=== PATIENT | female | born 1935 | race Caucasian/White ===

== ENCOUNTER → 2016-12-23 | Outpatient (CLI) | payer BC ==
[2016-12-23 09:12] LABS: ALANINE AMINOTRANSFERASE 18 U/L (9-52); ALBUMIN 4.1 g/dL (3.5-5.0); ALKALINE PHOSPHATASE 36 U/L (38-126); ANION GAP 12 (5-19); ASPARTATE AMINO TRANSFERASE 21 U/L (14-36); BILIRUBIN,DIRECT 0.2 mg/dL (0.0-0.4); BILIRUBIN,TOTAL 0.4 mg/dL (0.2-1.3); BLOOD UREA NITROGEN 38 mg/dL (7-20); CALCIUM 9.3 mg/dL (8.4-10.2); CARBON DIOXIDE 22 mmol/L (22-30); CHLORIDE 102 mmol/L (98-107); CHOLESTEROL 165.98 mg/dL (0-200); CREATININE RESULT 1.52 mg/dL (0.52-1.25); Direct HDL 54 mg/dL (>40); GLUCOSE 126 mg/dL (75-110); POTASSIUM 5.6 mmol/L (3.6-5.0); SODIUM 136.4 mmol/L (137-145); TOTAL PROTEIN 7.6 g/dL (6.3-8.2); TRIGLYCERIDES 116 mg/dL (<150)
[2016-12-23 09:23] LABS: DIRECT LDL 76 mg/dL (<100)
[2016-12-23 09:27] LABS: HEMATOCRIT 25.1 % (36.0-47.0); HEMOGLOBIN 8.6 g/dL (12.0-15.5); HGB HCT DIFFERENCE 0.7; WHITE BLOOD COUNT 6.8 10^3/uL (4.0-10.5)
[2016-12-23 09:28] LABS: RED BLOOD COUNT 2.31 10^6/uL (3.72-5.28)
[2016-12-23 09:29] LABS: MEAN CORPUSCULAR VOLUME 109 fl (80-97); RED CELL DISTRIBUTION WIDTH 16.3 % (11.5-14.0)
[2016-12-23 09:42] LABS: BASOPHILS % (MANUAL) 2 % (0-2); EOSINOPHILS % (MANUAL) 13 % (0-6); LYMPHOCYTES % (MANUAL) 33 % (13-45); TOTAL CELLS COUNTED 100; TOXIC GRANULATION SLIGHT
[2016-12-23 09:43] LABS: OVALOCYTES 2+; POIKILOCYTOSIS 2+; ROULEAUX SLIGHT; SCHISTOCYTES SLIGHT
[2016-12-23 09:44] LABS: ANISOCYTOSIS 1+
== END ==
LOC: OD 08:10
PROVIDERS: ATTEND Internal Medicine Geriatric Medicine
DX: E11.39 Type 2 diabetes mellitus with other diabetic ophthalmic complication (principal); I10 Essential (primary) hypertension
CPT/HCPCS: 36415; 80053; 80061; 85025

== ENCOUNTER 2017-07-08 15:04 | Observation (INO) | payer BC ==
[2017-07-08 17:09] LABS: ALANINE AMINOTRANSFERASE 21 U/L (9-52); ALBUMIN 4.5 g/dL (3.5-5.0); ALKALINE PHOSPHATASE 45 U/L (38-126); ANION GAP 9 (5-19); ASPARTATE AMINO TRANSFERASE 19 U/L (14-36); BILIRUBIN,DIRECT 0.2 mg/dL (0.0-0.4); BILIRUBIN,TOTAL 0.5 mg/dL (0.2-1.3); BLOOD UREA NITROGEN 34 mg/dL (7-20); CALCIUM 9.8 mg/dL (8.4-10.2); CARBON DIOXIDE 24 mmol/L (22-30); CHLORIDE 105 mmol/L (98-107); GLUCOSE 134 mg/dL (75-110); IRON(TIBC) 88.2 ug/dL (37-170); SODIUM 137.8 mmol/L (137-145); TOTAL PROTEIN 7.8 g/dL (6.3-8.2)
[2017-07-08 17:23] LABS: AMORPHOUS SEDIMENT,URINE TRACE /HPF; APPEARANCE,URINE CLOUDY; BILIRUBIN,URINE NEGATIVE (NEGATIVE); COLOR,URINE YELLOW; GLUCOSE, URINE NEGATIVE (NEGATIVE); KETONES,URINE NEGATIVE (NEGATIVE); LEUKOCYTE ESTERASE,URINE LARGE (NEGATIVE); NITRITE,URINE POSITIVE (NEGATIVE); PROTEIN,URINE 30 mg/dL (NEGATIVE); URINE SPECIFIC GRAVITY 1.005; UROBILINOGEN,URINE NEGATIVE mg/dL (<2.0)
[2017-07-08 18:15] LABS: FOLATE > 20.00 ng/mL (>2.76)
[2017-07-08] MEDS ORDERED: CEFTRIAXONE 1 GM/D5W RTU 1 GM/50 ML RTUPB IV SCH (19:00)
[2017-07-08 19:42] LABS: HEMATOCRIT 21.7 % (36.0-47.0); PLATELET COUNT 118 10^3/uL (150-450); RED CELL DISTRIBUTION WIDTH 18.3 % (11.5-14.0); WHITE BLOOD COUNT 5.7 10^3/uL (4.0-10.5)
[2017-07-08 20:00] LABS: ABSOLUTE LYMPHOCYTES# (MANUAL) 1.5 10^3/uL (0.5-4.7); ABSOLUTE MONOCYTES # (MANUAL) 0.6 10^3/uL (0.1-1.4); ABSOLUTE NEUTROPHILS# (MANUAL) 3.5 10^3/uL (1.7-8.2); BASOPHILS % (MANUAL) 0 % (0-2); EOSINOPHILS % (MANUAL) 3 % (0-6); LYMPHOCYTES % (MANUAL) 26 % (13-45); MONOCYTES % (MANUAL) 10 % (3-13); SEGMENTED NEUTROPHILS % (MAN) 61 % (42-78); TOTAL CELLS COUNTED 100
[2017-07-08 20:04] LABS: ANISOCYTOSIS 1+; OVALOCYTES SLIGHT; PLATELET COMMENT DECREASED; POIKILOCYTOSIS SLIGHT
[2017-07-08 20:05] LABS: PLATELET LARGE PRESENT
[2017-07-08 20:06] LABS: MEAN CORPUSCULAR HEMOGLOBIN 39.9 pg (27.0-33.4); MEAN CORPUSCULAR HGB CONC 35.8 g/dL (32.0-36.0); RED BLOOD COUNT 1.95 10^6/uL (3.72-5.28)
[2017-07-08 20:08] LABS: MEAN CORPUSCULAR VOLUME 111 fl (80-97)
[2017-07-08 20:09] LABS: HEMOGLOBIN 7.8 g/dL (12.0-15.5)
[2017-07-08] MEDS: CEFTRIAXONE SODIUM 1,000 MG in NORMAL SALINE 50 ML IV SCH (20:24)
[2017-07-08] MEDS ORDERED: ACETAMINOPHEN 325 MG TABLET PO PRN (21:04)
[2017-07-08] MEDS ORDERED: LISINOPRIL 10 MG TABLET PO ONE (22:15)
[2017-07-09 05:27] LABS: ANION GAP 11 (5-19); BLOOD UREA NITROGEN 39 mg/dL (7-20); CALCIUM 9.6 mg/dL (8.4-10.2); CARBON DIOXIDE 24 mmol/L (22-30); CHLORIDE 106 mmol/L (98-107); GLUCOSE 103 mg/dL (75-110); POTASSIUM 4.9 mmol/L (3.6-5.0); SODIUM 140.7 mmol/L (137-145)
[2017-07-09] MEDS: LANSOPRAZOLE 30 MG TAB.RAP.DR PO SCH (07:08)
--- NOTE | 2017-07-09 08:28 | PDOC H&P ---
History of Present Illness Admission Date/PCP: 07/08/17 15:34 Patient complains of: Frequent falls, Severe Anemia History of Present Illness: VIJI VARGAS is a 82 year old female known to my practice who presented for her annual wellness evaluation and reported recurrent episodes of fall at home. Patient reported preceding episodes of unsteady gait. No loss of consciousness. She denied any related injury. No associated chest pain, shortness of breath, palpitation or irregular heart beats. No nausea, vomiting, or abdominal pain. Patient reported tarry stool couple of times. There is associated change in urine color but no flank pain, hematuria, or dysuria. Her initial evaluation in the office revealed significant anemia with hemoglobin at 7.5gm/dL. She was subsequently sent to the ED with consideration for blood transfusion and further evaluation. 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, diet controlled diabetes mellitus type 2, osteoporosis, Macula degeneration Past Medical History Cardiac Medical History: Reports: Hypertension - LISINOPRIL, AMLODIPINE Denies: Myocardial Infarction Pulmonary Medical History: Denies: Asthma Neurological Medical History: Denies: Seizures GI Medical History: Denies: Hepatitis, Hiatal Hernia Hematology: Denies: Anemia, Sickle Cell Disease Past Surgical History Past Surgical History: Denies: Amputation, Hysterectomy, Mastectomy, Pacemaker Social History Smoking Status: Former Smoker Cigarettes Packs Per Day: 1 Number of Years Smokin Last Time Smoked: 06/09/1989 Frequency of Alcohol Use: Occasional Hx Recreational Drug Use: No Drugs: None Hx Prescription Drug Abuse: No Family History Family History: None Parental Family History Reviewed: Yes Children Family History Reviewed: Yes Sibling(s) Family History Reviewed.: Yes Medication/Allergy Home Medications: Fosinopril Sodium [Monopril] 20 mg PO DAILY 07/08/17 Metformin HCl [Metformin HCl ER] 500 mg PO Q12 07/08/17 Metoprolol Succinate [Toprol Xl 25 mg Tab.sr] 25 mg PO DAILY 07/08/17 Mirtazapine [Remeron] 30 mg PO QHS 07/08/17 Allergies/Adverse Reactions: codeine [Codeine] Adverse Reaction (Verified 07/08/17 15:08) Nausea Review of Systems All systems: reviewed and no additional remarkable complaints except as stated Physical Exam Vital Signs: Temp Pulse Resp BP Pulse Ox 98.6 F 69 18 120/60 100 07/09/17 06:30 07/09/17 07:00 07/09/17 06:30 07/09/17 06:30 07/09/17 06:30 Intake & Output 07/08/17 07/09/17 07/10/17 06:59 06:59 06:59 Intake Total 350 Balance 350 Weight 39.7 kg General appearance: PRESENT: thin Head exam: PRESENT: atraumatic, normocephalic Eye exam: PRESENT: conjunctiva pale, EOMI, PERRLA. ABSENT: scleral icterus Mouth exam: PRESENT: moist Neck exam: PRESENT: full ROM. ABSENT: carotid bruit, JVD, lymphadenopathy, thyromegaly Respiratory exam: PRESENT: clear to auscultation laura Cardiovascular exam: PRESENT: RRR. ABSENT: diastolic murmur, rubs, systolic murmur Pulses: PRESENT: normal dorsalis pedis pul, +2 pedal pulses bilateral Vascular exam: PRESENT: normal capillary refill, pallor GI/Abdominal exam: PRESENT: normal bowel sounds, soft. ABSENT: distended, guarding, mass, organolmegaly, rebound, tenderness Rectal exam: PRESENT: deferred Extremities exam: ABSENT: pedal edema Musculoskeletal exam: PRESENT: normal inspection Neurological exam: PRESENT: alert, awake, oriented to person, oriented to place , oriented to time, oriented to situation, CN II-XII grossly intact. ABSENT: motor sensory deficit Psychiatric exam: PRESENT: appropriate affect, normal mood. ABSENT: homicidal ideation, suicidal ideation Skin exam: PRESENT: dry, intact, warm. ABSENT: cyanosis, rash Results Laboratory Results: 07/08/17 18:30 07/09/17 04:18 07/08/17 07/08/17 07/08/17 16:34 16:34 16:34 WBC Cancelled RBC Cancelled Hgb Cancelled Hct Cancelled MCV Cancelled MCH Cancelled MCHC Cancelled RDW Cancelled Plt Count Cancelled Seg Neutrophils % Cancelled Lymphocytes % Cancelled Monocytes % Cancelled Eosinophils % Cancelled Basophils % Cancelled Absolute Neutrophils Cancelled Absolute Lymphocytes Cancelled Absolute Monocytes Cancelled Absolute Eosinophils Cancelled Absolute Basophils Cancelled Sodium 137.8 Potassium 5.0 Chloride 105 Carbon Dioxide 24 Anion Gap 9 BUN 34 H Creatinine 1.53 H Est GFR ( Amer) 39 L Est GFR (Non-Af Amer) 32 L Glucose 134 H Calcium 9.8 Iron 88.2 TIBC 297 % Saturation 30 Ferritin 73.10 Total Bilirubin 0.5 AST 19 ALT 21 Alkaline Phosphatase 45 Total Protein 7.8 Albumin 4.5 Vitamin B12 636.0 Folate > 20.00 Urine Color Urine Appearance Urine pH Ur Specific [place] Urine Protein Urine Glucose (UA) Urine Ketones Urine Blood Urine Nitrite Ur Leukocyte Esterase Urine WBC (Auto) Urine RBC (Auto) Blood Type A NEGATIVE Antibody Screen NEGATIVE 07/08/17 07/08/17 07/09/17 17:04 18:30 04:18 WBC 5.7 RBC 1.95 L Hgb 7.8 L Hct 21.7 L MCV 111 H MCH 39.9 H MCHC 35.8 RDW 18.3 H Plt Count 118 L Seg Neutrophils % Not Reportable Lymphocytes % Not Reportable Monocytes % Not Reportable Eosinophils % Not Reportable Basophils % Not Reportable Absolute Neutrophils Not Reportable Absolute Lymphocytes Not Reportable Absolute Monocytes Not Reportable Absolute Eosinophils Not Reportable Absolute Basophils Not Reportable Sodium 140.7 Potassium 4.9 Chloride 106 Carbon Dioxide 24 Anion Gap 11 BUN 39 H Creatinine 1.44 H Est GFR ( Amer) 42 L Est GFR (Non-Af Amer) 35 L Glucose 103 Calcium 9.6 Iron TIBC % Saturation Ferritin Total Bilirubin AST ALT Alkaline Phosphatase Total Protein Albumin Vitamin B12 Folate Urine Color YELLOW Urine Appearance CLOUDY Urine pH 6.0 Ur Specific [place] 1.005 Urine Protein 30 H Urine Glucose (UA) NEGATIVE Urine Ketones NEGATIVE Urine Blood SMALL H Urine Nitrite POSITIVE H Ur Leukocyte Esterase LARGE H Urine WBC (Auto) 66 Urine RBC (Auto) 9 Blood Type Antibody Screen Assessment & Plan - Diagnosis (1) Symptomatic anemia Is this a current diagnosis for this admission?: Yes Plan: See admitting physician orders (2) Frequent falls Is this a current diagnosis for this admission?: Yes Plan: See admitting physician orders (3) HTN (hypertension) Qualifiers: Hypertension type: essential hypertension Qualified Code(s): I10 - Essential (primary) hypertension Is this a current diagnosis for this admission?: Yes Plan: See admitting physician orders (4) Failure to thrive syndrome, adult Is this a current diagnosis for this admission?: Yes Plan: See admitting physician orders (5) HLD (hyperlipidemia) Qualifiers: Hyperlipidemia type: unspecified Qualified Code(s): E78.5 - Hyperlipidemia , unspecified Is this a current diagnosis for this admission?: Yes Plan: See admitting physician orders (6) Diabetes mellitus type 2 in nonobese Is this a current diagnosis for this admission?: Yes Plan: See admitting physician orders (7) Osteoarthritis involving multiple joints on both sides of body Is this a current diagnosis for this admission?: Yes Plan: See admitting physician orders - Time Time Spent: 50 to 70 Minutes Medications reviewed and adjusted accordingly: Yes Anticipated discharge: Home with Homehealth Within: within 48 hours - Inpatient Certification Post Hospital Care: D/C Master Fisher Documentation - Plan Summary Plan Summary: See admitting physician orders
[2017-07-09] MEDS: LISINOPRIL 10 MG TABLET PO SCH (09:31)
[2017-07-09 13:48] LABS: ABSOLUTE EOSINOPHILS # (AUTO) 0.3 10^3/uL (0.0-0.6); ABSOLUTE LYMPHOCYTES (AUTO) 1.6 10^3/uL (0.5-4.7); ABSOLUTE MONOCYTES (AUTO) 0.4 10^3/uL (0.1-1.4); ABSOLUTE NEUT (AUTO) 3.7 10^3/uL (1.7-8.2); BASOPHILS % (AUTO) 0.7 % (0-2); EOSINOPHILS % (AUTO) 4.5 % (0-6); HEMATOCRIT 34.3 % (36.0-47.0); LYMPHOCYTES % (AUTO) 26.1 % (13-45); MEAN CORPUSCULAR HEMOGLOBIN 36.7 pg (27.0-33.4); MONOCYTES % (AUTO) 7.3 % (3-13); PLATELET COUNT 103 10^3/uL (150-450); RED CELL DISTRIBUTION WIDTH 19.6 % (11.5-14.0); SEGMENTED NEUTROPHILS % (AUTO) 61.4 % (42-78); TOTAL CELLS COUNTED % (AUTO) 100 %
[2017-07-09 13:50] LABS: HEMOGLOBIN 12.5 g/dL (12.0-15.5)
[2017-07-09 13:54] LABS: MEAN CORPUSCULAR HGB CONC 36.3 g/dL (32.0-36.0); MEAN CORPUSCULAR VOLUME 101 fl (80-97)
[2017-07-09 14:40] LABS: PATH REVIEW PATHOLOGIST REVIEWED
[2017-07-09] MEDS: CEFTRIAXONE SODIUM 1,000 MG in NORMAL SALINE 50 ML IV SCH (22:07)
[2017-07-10] MEDS: LANSOPRAZOLE 30 MG TAB.RAP.DR PO SCH (06:00)
[2017-07-10] MEDS: LISINOPRIL 10 MG TABLET PO SCH (09:40)
[2017-07-10 15:30] LABS: APPEARANCE,URINE SLIGHTLY-CLOUDY; BILIRUBIN,URINE NEGATIVE (NEGATIVE); COLOR,URINE YELLOW; GLUCOSE, URINE NEGATIVE (NEGATIVE); KETONES,URINE NEGATIVE (NEGATIVE); LEUKOCYTE ESTERASE,URINE LARGE (NEGATIVE); NITRITE,URINE NEGATIVE (NEGATIVE); PROTEIN,URINE NEGATIVE (NEGATIVE); UROBILINOGEN,URINE NEGATIVE mg/dL (<2.0)
--- NOTE | 2017-07-10 15:41 | Physician Advisory Note ---
Physician Advisor ProgressNote .: [facility] have reviewed [facility] medical record for this patient. Physician Advisor Statement: Please consider documenting, if you agree: 1. "Anemia, suspect due to " ("chronic blood loss due to occult GI bleeding ..."?, or "nutritional ____ deficiency anemia"? or ...) 2. "falls, possibly due to " Thanks! CK
--- NOTE | 2017-07-10 18:29 | PDOC DISCHARGE SUMMARY ---
General - Admit/Disc Date/PCP Admission Date/Primary Care Provider: 07/08/17 15:34 Discharge Date: 07/10/17 - Discharge Diagnosis (1) Symptomatic anemia Is this a current diagnosis for this admission?: Yes (2) Anemia associated with diabetes mellitus Is this a current diagnosis for this admission?: Yes (3) Diabetes mellitus type 2 in nonobese Is this a current diagnosis for this admission?: Yes (5) Frequent falls Is this a current diagnosis for this admission?: Yes (6) HTN (hypertension) Is this a current diagnosis for this admission?: Yes (7) Failure to thrive syndrome, adult Is this a current diagnosis for this admission?: Yes (8) HLD (hyperlipidemia) Is this a current diagnosis for this admission?: Yes (9) Osteoarthritis involving multiple joints on both sides of body Is this a current diagnosis for this admission?: Yes - Additional Information Discharge Diet: Cardiac, Diabetic Discharge Activity: Activity As Tolerated Prescriptions: Cephalexin Monohydrate [Keflex 500 mg Capsule] 500 mg PO BID #10 capsule Home Medications: Fosinopril Sodium [Monopril] 20 mg PO DAILY 07/08/17 Metformin HCl [Metformin HCl ER] 500 mg PO Q12 07/08/17 Metoprolol Succinate [Toprol Xl 25 mg Tab.sr] 25 mg PO DAILY 07/08/17 Mirtazapine [Remeron] 30 mg PO QHS 07/08/17 Cephalexin Monohydrate [Keflex 500 mg Capsule] 500 mg PO BID #10 capsule History of Present Illness History of Present Illness: VIJI VARGAS is a 82 year old female known to my practice who presented for her annual wellness evaluation and reported recurrent episodes of fall at home. Patient reported preceding episodes of unsteady gait. No loss of consciousness. She denied any related injury. No associated chest pain, shortness of breath, palpitation or irregular heart beats. No nausea, vomiting, or abdominal pain. Patient reported tarry stool couple of times. There is associated change in urine color but no flank pain, hematuria, or dysuria. Her initial evaluation in the office revealed significant anemia with hemoglobin at 7.5gm/dL. She was subsequently sent to the ED with consideration for blood transfusion and further evaluation. 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 Her anemia workup so far has been negative for chronic blood loss or nutritional source. Her anemia may be due to suppressed marrow function related to diabetes mellitus type 2 management. She was managed for probable bacteria UTI. She will be discharged home on Keflex 500mg po bid x 5 days. She will follow up in the office as instructed upon discharge. she will need outpatient further work up for anemia Physical Exam Vital Signs: Temp Pulse Resp BP Pulse Ox 98.8 F 96 20 116/49 L 97 07/10/17 13:14 07/10/17 14:00 07/10/17 13:14 07/10/17 13:14 07/10/17 13:14 Intake & Output 07/09/17 07/10/17 07/11/17 06:59 06:59 06:59 Intake Total 1050 1492 Balance 1050 1492 Weight 39.7 kg 45.5 kg General appearance: PRESENT: no acute distress, thin Head exam: PRESENT: atraumatic, normocephalic Eye exam: PRESENT: conjunctiva pink, EOMI, PERRLA. ABSENT: scleral icterus Mouth exam: PRESENT: moist Respiratory exam: PRESENT: clear to auscultation laura Cardiovascular exam: PRESENT: RRR. ABSENT: diastolic murmur, rubs, systolic murmur Vascular exam: PRESENT: normal capillary refill. ABSENT: pallor GI/Abdominal exam: PRESENT: normal bowel sounds, soft. ABSENT: distended, guarding, mass, organolmegaly, rebound, tenderness Extremities exam: ABSENT: pedal edema Musculoskeletal exam: PRESENT: deformity - due to arthritis, normal inspection Neurological exam: PRESENT: alert, awake, oriented to person, oriented to place , oriented to time, oriented to situation, CN II-XII grossly intact. ABSENT: motor sensory deficit Psychiatric exam: PRESENT: appropriate affect, normal mood. ABSENT: homicidal ideation, suicidal ideation Skin exam: PRESENT: dry, intact, warm. ABSENT: cyanosis, rash Results Laboratory Results: 07/09/17 13:31 07/09/17 04:18 07/10/17 15:15 Urine Color YELLOW Urine Appearance SLIGHTLY-CLOUDY Urine pH 6.0 Ur Specific [place] 1.010 Urine Protein NEGATIVE Urine Glucose (UA) NEGATIVE Urine Ketones NEGATIVE Urine Blood NEGATIVE Urine Nitrite NEGATIVE Ur Leukocyte Esterase LARGE H Urine WBC (Auto) 87 Urine RBC (Auto) 1 07/08/17 17:04 Clean Catch Midstream Urine Culture - Final 2,000 col/ml Qualifiers PATEINT BEING DISCHARGED WITH ANY OF THE FOLLOWING DIAGNOSIS?: No Plan Discharge Plan: Discharge home today. Follow up in the office as instructed upon discharge.
[2017-07-10 18:38] VITALS: BP 120/60
== END 2017-07-10 19:09 | disposition home or self-care (01) ==
LOC: ER 15:04 → EH 15:34 → 4N 21:49
PROVIDERS: ADMIT Internal Medicine Geriatric Medicine; ATTEND Internal Medicine Geriatric Medicine
PROC: 30233N1 Transfusion of Nonautologous Red Blood Cells into Peripheral Vein, Percutaneous Approach (ICD-10-PCS; principal; 2017-07-09)
DX: E11.69 Type 2 diabetes mellitus with other specified complication (principal); D63.8 Anemia in other chronic diseases classified elsewhere; R29.6 Repeated falls; I10 Essential (primary) hypertension; R62.7 Adult failure to thrive; E78.5 Hyperlipidemia, unspecified; M15.9 Polyosteoarthritis, unspecified; R26.81 Unsteadiness on feet; R19.5 Other fecal abnormalities; M81.0 Age-related osteoporosis without current pathological fracture; H35.30 Unspecified macular degeneration; Z79.899 Other long term (current) drug therapy; Z87.891 Personal history of nicotine dependence
CPT/HCPCS: 86900; 86901; 36415 ×2; 87086; 36430; 86850; 82607; 82728; 82746; 83540; 83550; 85025 ×2; 80048; 80053; 81001 ×2; 86920; 86902; G0378 ×4; P9016; J0696 ×2; J3490 ×2; G0379

== ENCOUNTER → 2017-07-23 | Outpatient (CLI) | payer BC ==
[2017-07-24 07:25] LABS: ERYTHROPOIETIN (EPO) 26.6 mIU/mL (2.6-18.5)
[2017-07-25 16:39] LABS: A/G RATIO 1.2 (0.7-1.7); ALBUMIN 2 4.2 g/dL (2.9-4.4); ALPHA-2-GLOBULIN 2 0.7 g/dL (0.4-1.0); BETA GLOBULINS 1.1 g/dL (0.7-1.3); GAMMA GLOBULIN 1.6 g/dL (0.4-1.8); GLOBULIN TOTAL 3.5 g/dL (2.2-3.9); MONOCLONAL SPIKE Not Observed g/dL (Not Observed); PROTEIN TOTAL SERUM 7.7 g/dL (6.0-8.5)
[2017-07-28 13:38] LABS: IMMUNOGLOBULIN A 428 mg/dL (64-422); IMMUNOGLOBULIN G 1396 mg/dL (700-1600)
[2017-07-28 13:57] LABS: IMMUNOGLOBULIN M 73 mg/dL (26-217)
[2017-07-28 15:38] LABS: ALBUMIN UR 24.2 % (.); ALPHA-1-GLOBULIN URINE 3.6 % (.); ALPHA-2-GLOBULIN URINE 17.8 % (.); GAMMA GLOBULIN URINE 29.4 % (.); M-SPIKE % UR Not Observed % (Not Observed); PROTEIN TOTAL URINE 15.8 mg/dL (Not Estab.)
== END ==
LOC: OD 11:54
PROVIDERS: ATTEND Internal Medicine Geriatric Medicine
DX: D64.9 Anemia, unspecified (principal)
CPT/HCPCS: 36415; 82668; 82784; 84165; 84166

== ENCOUNTER → 2017-09-10 | Outpatient (CLI) | payer BC ==
--- NOTE | 2017-09-10 16:31 | RADIOLOGY REPORT (SQ) ---
EXAM DESCRIPTION: BONE SURVEY COMPLETE COMPLETED DATE/TIME: 09/10/2017 3:20 pm REASON FOR STUDY: OTHER DISORDERS OF PLASMA PROTEIN METABOLISM/ANEMIA/THROMBOCYTOPENIA E88.09 OTH D ISORDERS OF PLASMA-PROTEIN METABOLISM, NEC COMPARISON: None. TECHNIQUE: Images of the axial and proximal appendicular skeleton are obtained, along with lateral s kull and frontal chest films. LIMITATIONS: None. FINDINGS: AP CHEST: No bony findings. Lungs are clear, hyperlucent from obstructive disease. Calci fied granulomas both lung bases and spleen. No cardiomegaly. Old healed left lateral 5th and 6th ri b fractures. LATERAL SKULL: No worrisome bone lesions. AP BOTH HUMERI: No worrisome bone lesions. TWO-VIEW LUMBAR SPINE: No worrisome bone lesions. Minimal upper endplate T9 compression deformity TWO-VIEW THORACIC SPINE: No worrisome bone lesions. AP PELVIS: No worrisome bone lesions. AP BOTH FEMURS: No worrisome bone lesions. OTHER: Incidental finding of calcified gallstones. IMPRESSION: NO WORRISOME BONE LESIONS. TECHNICAL DOCUMENTATION: JOB ID: [id number] [employer]- All Rights Reserved Reading location - IP/workstation name: [email or web address]
== END ==
LOC: RAD 14:28
PROVIDERS: ATTEND Internal Medicine Medical Oncology
DX: D64.9 Anemia, unspecified (principal); E88.09 Other disorders of plasma-protein metabolism, not elsewhere classified; D69.6 Thrombocytopenia, unspecified
CPT/HCPCS: 77075

== ENCOUNTER 2017-10-03 07:49 | Outpatient (CLI) | payer BC ==
[~2017-10-03 07:49] MED LIST: ACETAMINOPHEN 325 MG TABLET PO PRN; DIPHENHYDRAMINE HCL 25 MG CAPSULE PO PRN; FUROSEMIDE INJ/PF 20 MG/2 ML SDV IV PRN
[2017-10-03] MEDS ORDERED: NORMAL SALINE 250 ML IV PRN (08:57)
[2017-10-03 12:50] VITALS: BP 161/73
[2017-10-03 14:43] LABS: HEMOGLOBIN 10.6 g/dL (12.0-15.5); RED CELL DISTRIBUTION WIDTH 15.4 % (11.5-14.0); WHITE BLOOD COUNT 4.8 10^3/uL (4.0-10.5)
[2017-10-03 14:55] LABS: HEMATOCRIT 30.3 % (36.0-47.0); MEAN CORPUSCULAR HEMOGLOBIN 32.9 pg (27.0-33.4); MEAN CORPUSCULAR HGB CONC 35.2 g/dL (32.0-36.0); MEAN CORPUSCULAR VOLUME 93 fl (80-97); PLATELET COUNT 59 10^3/uL (150-450); RED BLOOD COUNT 3.24 10^6/uL (3.72-5.28)
== END 2017-10-03 15:00 | disposition home or self-care (01) ==
LOC: II 07:49 → 5TH 08:01 → II 15:00
PROVIDERS: ATTEND Internal Medicine Medical Oncology
PROC: 30233R1 Transfusion of Nonautologous Platelets into Peripheral Vein, Percutaneous Approach (ICD-10-PCS; principal; 2017-10-03)
DX: D64.9 Anemia, unspecified (principal)
CPT/HCPCS: 86900; 86901; 36415; 36430; 85027; P9035

== ENCOUNTER 2017-10-18 10:18 | Inpatient (IN) | payer MEDICARE, BC ==
--- NOTE | 2017-10-18 10:35 | ER Document Report ---
ED Medical Screen (RME) - General Chief Complaint: General Weakness Stated Complaint: WEAKNESS Time Seen by Provider: 10/18/17 10:28 Notes: RAPID MEDICAL EVALUATION DISCLOSURE I have seen this patient as part of a Rapid Medical Evaluation and, if applicable, placed any initially appropriate orders. The patient will be seen and fully evaluated, including a full history and physical exam, by a provider ( in Main ED or Fast Track) when a room becomes available. 82F here w family who states she's been weak and lightheaded all over for the past 3 days. The lightheadedness is worse with standing up. She does not have any pain anywhere. She denies cough congestion runny nose sore throat vomiting abdominal pain dysuria frequency. She did have diarrhea earlier in the week for which she took Imodium and this has resolved. EXAM Minimally tachycardic low 100s Regular rhythm Clear to auscultation bilaterally TRAVEL OUTSIDE OF THE [place] IN LAST 30 DAYS: No - Related Data Allergies/Adverse Reactions: codeine [Codeine] Adverse Reaction (Verified 10/18/17 10:33) Nausea Past Medical History - Social History Chew tobacco use (# tins/day): No Frequency of alcohol use: Rare Drug Abuse: None - Past Medical History Cardiac Medical History: Reports: Hx Hypertension - LISINOPRIL, AMLODIPINE Denies: Hx Heart Attack Pulmonary Medical History: Denies: Hx Asthma Neurological Medical History: Denies: Hx Cerebrovascular Accident, Hx Seizures Renal/ Medical History: Denies: Hx Peritoneal Dialysis GI Medical History: Denies: Hx Hepatitis, Hx Hiatal Hernia, Hx Ulcer Infectious Medical History: Denies: Hx Hepatitis Past Surgical History: Denies: Hx Hysterectomy, Hx Mastectomy, Hx Open Heart Surgery, Hx Pacemaker - Immunizations Hx Diphtheria, Pertussis, Tetanus Vaccination: Yes History of Influenza Vaccine for 03/2017 - 08/2017 Season: Refused Physical Exam - Vital signs Vitals: Temp Pulse Resp BP Pulse Ox 98.2 F 103 H 22 H 103/55 L 99 10/18/17 10:26 10/18/17 10:10/18/17 10:10/18/17 10:10/18/17 10:26 Course - Vital Signs Vital signs: Temp Pulse Resp BP Pulse Ox 98.2 F 103 H 22 H 103/55 L 99 10/18/17 10:10/18/17 10:10/18/17 10:10/18/17 10:10/18/17 10:26
--- NOTE | 2017-10-18 11:33 | ER Document Report ---
ED General - General Chief Complaint: General Weakness Stated Complaint: WEAKNESS Time Seen by Provider: 10/18/17 10:28 Mode of Arrival: Ambulatory Information source: Patient, [facility] Records Notes: 82-year-old female history of anemia requiring multiple transfusions presents with complaints of generalized weakness. Patient is noted to have had few episodes of diarrhea recently has not been eating or drinking well guarding notes the patient herself denies any complaints but stated that she was locking up today while on the toilet but that symptoms have improved since then TRAVEL OUTSIDE OF THE [place] IN LAST 30 DAYS: No - HPI Onset: Last week Onset/Duration: Persistent Quality of pain: No pain Severity: Mild Pain Level: Denies Associated symptoms: Weakness Exacerbated by: Denies Relieved by: Denies Similar symptoms previously: Yes Recently seen / treated by doctor: Yes - Related Data Allergies/Adverse Reactions: codeine [Codeine] Adverse Reaction (Verified 10/18/17 10:33) Nausea Past Medical History - Social History Smoking Status: Never Smoker Cigarette use (# per day): No Chew tobacco use (# tins/day): No Smoking Education Provided: No Frequency of alcohol use: Rare Drug Abuse: None Family History: None Patient has suicidal ideation: No Patient has homicidal ideation: No - Past Medical History Cardiac Medical History: Reports: Hx Hypertension - LISINOPRIL, AMLODIPINE Denies: Hx Heart Attack Pulmonary Medical History: Denies: Hx Asthma Neurological Medical History: Denies: Hx Cerebrovascular Accident, Hx Seizures Renal/ Medical History: Denies: Hx Peritoneal Dialysis GI Medical History: Denies: Hx Hepatitis, Hx Hiatal Hernia, Hx Ulcer Infectious Medical History: Denies: Hx Hepatitis Past Surgical History: Denies: Hx Hysterectomy, Hx Mastectomy, Hx Open Heart Surgery, Hx Pacemaker - Immunizations Hx Diphtheria, Pertussis, Tetanus Vaccination: Yes Review of Systems - Review of Systems Notes: REVIEW OF SYSTEMS: CONSTITUTIONAL : Denies fever, chills, or sweats. Denies recent illness. EENT: Denies eye, ear, throat, or mouth pain or symptoms. Denies nasal or sinus congestion or discharge. Denies throat, tongue, or mouth swelling or difficulty swallowing. CARDIOVASCULAR: Denies chest pain. Denies palpitations or racing or irregular heart beat. Denies ankle edema. RESPIRATORY: Denies cough, cold, or chest congestion. Denies shortness of breath, difficulty breathing, or wheezing. GASTROINTESTINAL: Admits nausea diarrhea GENITOURINARY: Denies difficulty urinating, painful urination, burning, frequency, blood in urine, or discharge. FEMALE GENITOURINARY: Denies vaginal bleeding, heavy or abnormal periods, irregular periods. Denies vaginal discharge or odor. MUSCULOSKELETAL: Denies back or neck pain or stiffness. Denies joint pain or swelling. SKIN: Denies rash, lesions or sores. HEMATOLOGIC : Denies easy bruising or bleeding. LYMPHATIC: Denies swollen, enlarged glands. NEUROLOGICAL: Admits to generalized weakness PSYCHIATRIC: Denies anxiety or stress. Denies depression, suicidal ideation, or homicidal ideation. ALL OTHER SYSTEMS REVIEWED AND NEGATIVE. PHYSICAL EXAMINATION: GENERAL: Elderly female chronically ill-appearing HEAD: Atraumatic, normocephalic. EYES: Pupils equal round and reactive to light, extraocular movements intact, conjunctiva are normal. ENT: Nares patent, oropharynx clear without exudates. Moist mucous membranes. NECK: Normal range of motion, supple without lymphadenopathy LUNGS: Breath sounds clear to auscultation bilaterally and equal. No wheezes rales or rhonchi. HEART: Regular rate and rhythm without murmurs ABDOMEN: Soft, nontender, nondistended abdomen. No guarding, no rebound. No masses appreciated. Female : deferred Musculoskeletal: Normal range of motion, no pitting or edema. No cyanosis. NEUROLOGICAL: Cranial nerves grossly intact. Normal speech, normal gait. Normal sensory, motor exams PSYCH: Normal mood, normal affect. SKIN: Pale Dictation was performed using [employer] voice recognition software Physical Exam - Vital signs Vitals: Temp Pulse Resp BP Pulse Ox 98.2 F 103 H 22 H 103/55 L 99 10/18/17 10:26 10/18/17 10:26 10/18/17 10:26 10/18/17 10:26 10/18/17 10:26 Course - Re-evaluation Re-evalutation: 10/18/17 11:40 Patient is probably anemic again, lab work pending 10/18/17 14:26 Patient's hemoglobin is 5.4, this would be consistent with her weakness and pale appearance. Patient will be admitted to her primary care physician orders for transfusion have been placed patient understands risks and benefits - Vital Signs Vital signs: Temp Pulse Resp BP Pulse Ox 98.2 F 103 H 17 122/52 L 99 10/18/17 10:26 10/18/17 10:26 10/18/17 12:00 10/18/17 11:03 10/18/17 10:26 - Laboratory Result Diagrams: 10/18/17 12:27 10/18/17 10:59 Laboratory results interpreted by me: 10/18/17 10/18/17 10/18/17 10:59 12:27 12:27 RBC 1.47 L Hgb 5.4 L Hct 14.7 L* MCV 100 H D MCH 37.1 H MCHC 37.1 H RDW 15.0 H Plt Count 11 L* Sodium 136.9 L Potassium 5.3 H BUN 62 H Creatinine 1.84 H Est GFR ( Amer) 32 L Est GFR (Non-Af Amer) 26 L Glucose 167 H Crossmatch See Detail Critical Care Note - Critical Care Note Total time excluding time spent on procedures (mins): 44 Comments: 44 minutes of critical care time spent in direct contact evaluating and reevaluating the patient, treating symptoms, reviewing labs and studies and speaking with family and consultants excluding any procedures Discharge - Discharge Clinical Impression: Symptomatic anemia, Weakness Condition: Fair Disposition: ADMITTED INPATIENT Admitting Provider: [facility]ain Unit Admitted: Medical Floor Referrals: DORIS ELLIS MD [Primary Care Provider] - Follow up as needed
[2017-10-18 11:43] LABS: ALANINE AMINOTRANSFERASE 17 U/L (9-52); ALBUMIN 3.5 g/dL (3.5-5.0); ALKALINE PHOSPHATASE 64 U/L (38-126); ANION GAP 9 (5-19); ASPARTATE AMINO TRANSFERASE 17 U/L (14-36); BILIRUBIN,DIRECT 0.3 mg/dL (0.0-0.4); BILIRUBIN,TOTAL 0.4 mg/dL (0.2-1.3); BLOOD UREA NITROGEN 62 mg/dL (7-20); CALCIUM 8.6 mg/dL (8.4-10.2); CARBON DIOXIDE 22 mmol/L (22-30); CHLORIDE 106 mmol/L (98-107); GLUCOSE 167 mg/dL (75-110); PHOSPHORUS 3.5 mg/dL (2.5-4.5); POTASSIUM 5.3 mmol/L (3.6-5.0); SODIUM 136.9 mmol/L (137-145); TOTAL PROTEIN 6.6 g/dL (6.3-8.2)
[2017-10-18] MEDS ORDERED: NORMAL SALINE 250 ML IV PRN ×2 (11:48)
--- NOTE | 2017-10-18 12:14 | RADIOLOGY REPORT (SQ) ---
EXAM DESCRIPTION: CHEST 2 VIEWS COMPLETED DATE/TIME: 10/18/2017 11:50 am REASON FOR STUDY: eval pneumonia COMPARISON: None. EXAM PARAMETERS: NUMBER OF VIEWS: two views TECHNIQUE: Digital Frontal and Lateral radiographic views of the chest acquired. RADIATION DOSE: NA LIMITATIONS: none FINDINGS: LUNGS AND PLEURA: No acute infiltrate or effusion. Density overlying posterior right 9th rib which could represent calcified granuloma. Slight prominence of interstitial markings in right u pper lobe could represent chronic change MEDIASTINUM AND HILAR STRUCTURES: No masses or contour abnormalities. HEART AND VASCULAR STRUCTURES: Heart normal size. No evidence for failure. BONES: Old healed bilateral rib fractures. Nondisplaced fracture left posterior 6th ribs. Old compr ession deformity of lower dorsal vertebra. HARDWARE: None in the chest. OTHER: Extensive atherosclerotic change of the abdominal aorta. IMPRESSION: CHRONIC INTERSTITIAL CHANGES RIGHT UPPER LOBE. NO ACUTE INFILTRATES SEEN. TECHNICAL DOCUMENTATION: JOB ID: [id number] 2010 [employer]- All Rights Reserved Reading location - IP/workstation name: [email or web address]
[2017-10-18 13:32] LABS: WHITE BLOOD COUNT 4.4 10^3/uL (4.0-10.5)
[2017-10-18 13:57] LABS: ABSOLUTE LYMPHOCYTES# (MANUAL) 1.6 10^3/uL (0.5-4.7); ABSOLUTE MONOCYTES # (MANUAL) 0.4 10^3/uL (0.1-1.4); ABSOLUTE NEUTROPHILS# (MANUAL) 2.5 10^3/uL (1.7-8.2); BASOPHILS % (MANUAL) 0 % (0-2); EOSINOPHILS % (MANUAL) 0 % (0-6); LYMPHOCYTES % (MANUAL) 36 % (13-45); MONOCYTES % (MANUAL) 8 % (3-13); SEGMENTED NEUTROPHILS % (MAN) 56 % (42-78); TOTAL CELLS COUNTED 100
[2017-10-18 14:04] LABS: OVALOCYTES 1+; POIKILOCYTOSIS 1+; POLYCHROMASIA SLIGHT
[2017-10-18 14:05] LABS: ANISOCYTOSIS SLIGHT; PLATELET COMMENT DECREASED
[2017-10-18 14:06] LABS: MEAN CORPUSCULAR HEMOGLOBIN 37.1 pg (27.0-33.4); MEAN CORPUSCULAR HGB CONC 37.1 g/dL (32.0-36.0); RED BLOOD COUNT 1.47 10^6/uL (3.72-5.28)
[2017-10-18 14:07] LABS: HEMATOCRIT 14.7 % (36.0-47.0)
[2017-10-18 14:08] LABS: HEMOGLOBIN 5.4 g/dL (12.0-15.5)
[2017-10-18 14:13] LABS: MEAN CORPUSCULAR VOLUME 100 fl (80-97)
[2017-10-18 14:15] LABS: PLATELET COUNT 11 10^3/uL (150-450)
--- NOTE | 2017-10-18 15:55 | EKG REPORT ---
SEVERITY:- OTHERWISE NORMAL ECG - SINUS RHYTHM BORDERLINE LEFT AXIS DEVIATION : Confirmed by: Yasmany Acuña MD 18-Oct-2017 15:54:34
[2017-10-18 17:03] LABS: APPEARANCE,URINE SLIGHTLY-CLOUDY; BILIRUBIN,URINE NEGATIVE (NEGATIVE); COLOR,URINE YELLOW; GLUCOSE, URINE NEGATIVE (NEGATIVE); KETONES,URINE NEGATIVE (NEGATIVE); LEUKOCYTE ESTERASE,URINE LARGE (NEGATIVE); NITRITE,URINE POSITIVE (NEGATIVE); PROTEIN,URINE NEGATIVE (NEGATIVE); URINE SPECIFIC GRAVITY 1.012; UROBILINOGEN,URINE NEGATIVE mg/dL (<2.0)
[2017-10-18] MEDS ORDERED: LORATADINE 10 MG TABLET PO PRN (18:43)
[2017-10-18] MEDS ORDERED: (PENDING PHARMACY ID) (Vit C/Vit E/Lutein/Min/Omega-3 [Ocuvite Softgel] 1 EACH) PO SCH (18:45)
[2017-10-18] MEDS ORDERED: MIRTAZAPINE 15 MG TABLET PO PRN (19:15)
[2017-10-18 19:43] LABS: FREE T4 (FREE THYROXINE) 1.37 ng/dL (0.78-2.19)
[2017-10-18 19:55] LABS: PHOSPHORUS 3.7 mg/dL (2.5-4.5)
[2017-10-18 19:57] LABS: THYROID STIMULATING HORMONE 1.12 uIU/mL (0.47-4.68)
[2017-10-18 20:45] LABS: URINE AMPHETAMINES SCREEN NEGATIVE; URINE BARBITURATES SCREEN NEGATIVE; URINE BENZODIAZEPINES SCREEN NEGATIVE; URINE COCAINE SCREEN NEGATIVE; URINE MARIJUANA (THC) SCREEN NEGATIVE; URINE METHADONE SCREEN NEGATIVE; URINE PHENCYCLIDINE SCREEN NEGATIVE
[2017-10-18 22:21] LABS: HEMATOCRIT 27.8 % (36.0-47.0); MEAN CORPUSCULAR HEMOGLOBIN 36.6 pg (27.0-33.4); MEAN CORPUSCULAR HGB CONC 35.8 g/dL (32.0-36.0); MEAN CORPUSCULAR VOLUME 102 fl (80-97); RED BLOOD COUNT 2.71 10^6/uL (3.72-5.28); RED CELL DISTRIBUTION WIDTH 14.4 % (11.5-14.0); WHITE BLOOD COUNT 4.7 10^3/uL (4.0-10.5)
[2017-10-18 22:38] LABS: HEMOGLOBIN 9.9 g/dL (12.0-15.5)
[2017-10-18 22:45] LABS: ABSOLUTE LYMPHOCYTES# (MANUAL) 2.2 10^3/uL (0.5-4.7); ABSOLUTE MONOCYTES # (MANUAL) 0.1 10^3/uL (0.1-1.4); ABSOLUTE NEUTROPHILS# (MANUAL) 2.4 10^3/uL (1.7-8.2); BAND NEUTROPHILS % (MANUAL) 1 % (3-5); BASOPHILS % (MANUAL) 0 % (0-2); EOSINOPHILS % (MANUAL) 1 % (0-6); LYMPHOCYTES % (MANUAL) 42 % (13-45); METAMYELOCYTES % (MANUAL) 1 % (0); MONOCYTES % (MANUAL) 2 % (3-13); NUCLEATED RED BLOOD CELLS 1 /100 WBC (0); SEGMENTED NEUTROPHILS % (MAN) 49 % (42-78); TOTAL CELLS COUNTED 100
[2017-10-18 22:46] LABS: PLATELET COMMENT DECREASED
[2017-10-18 22:47] LABS: TEAR DROP CELLS SLIGHT
[2017-10-18 22:48] LABS: ANISOCYTOSIS SLIGHT; OVALOCYTES SLIGHT; POIKILOCYTOSIS SLIGHT; POLYCHROMASIA SLIGHT
[2017-10-18 22:54] LABS: PLATELET COUNT 11 10^3/uL (150-450)
[2017-10-19] MEDS ORDERED: ACETAMINOPHEN 325 MG TABLET PO PRN
[2017-10-19 07:24] LABS: ALANINE AMINOTRANSFERASE 27 U/L (9-52); ALBUMIN 3.3 g/dL (3.5-5.0); ALKALINE PHOSPHATASE 68 U/L (38-126); ANION GAP 12 (5-19); ASPARTATE AMINO TRANSFERASE 19 U/L (14-36); BILIRUBIN,DIRECT 0.4 mg/dL (0.0-0.4); BILIRUBIN,TOTAL 0.7 mg/dL (0.2-1.3); BLOOD UREA NITROGEN 44 mg/dL (7-20); CALCIUM 8.6 mg/dL (8.4-10.2); CARBON DIOXIDE 22 mmol/L (22-30); CHLORIDE 109 mmol/L (98-107); CHOLESTEROL 139.98 mg/dL (0-200); GLUCOSE 150 mg/dL (75-110); POTASSIUM 5.1 mmol/L (3.6-5.0); SODIUM 142.6 mmol/L (137-145); TOTAL PROTEIN 6.4 g/dL (6.3-8.2); TRIGLYCERIDES 189 mg/dL (<150)
[2017-10-19 07:32] LABS: HEMATOCRIT 27.5 % (36.0-47.0); HEMOGLOBIN 10.1 g/dL (12.0-15.5); MEAN CORPUSCULAR HEMOGLOBIN 35.7 pg (27.0-33.4); MEAN CORPUSCULAR HGB CONC 36.6 g/dL (32.0-36.0); RED BLOOD COUNT 2.81 10^6/uL (3.72-5.28); RED CELL DISTRIBUTION WIDTH 15.3 % (11.5-14.0); WHITE BLOOD COUNT 3.9 10^3/uL (4.0-10.5)
[2017-10-19 07:34] LABS: DIRECT LDL 65 mg/dL (<100)
[2017-10-19 07:37] LABS: VLDL CHOLESTEROL 37.8 mg/dL (10-31)
[2017-10-19 08:13] LABS: MEAN CORPUSCULAR VOLUME 98 fl (80-97)
[2017-10-19 08:15] LABS: PLATELET COUNT 14 10^3/uL (150-450)
[2017-10-19 08:23] LABS: ABSOLUTE LYMPHOCYTES# (MANUAL) 1.4 10^3/uL (0.5-4.7); ABSOLUTE MONOCYTES # (MANUAL) 0.2 10^3/uL (0.1-1.4); ABSOLUTE NEUTROPHILS# (MANUAL) 2.2 10^3/uL (1.7-8.2); BASOPHILS % (MANUAL) 1 % (0-2); EOSINOPHILS % (MANUAL) 3 % (0-6); LYMPHOCYTES % (MANUAL) 33 % (13-45); MONOCYTES % (MANUAL) 4 % (3-13); NUCLEATED RED BLOOD CELLS 3 /100 WBC (0); SEGMENTED NEUTROPHILS % (MAN) 56 % (42-78); TOTAL CELLS COUNTED 100
[2017-10-19 08:29] LABS: ANISOCYTOSIS SLIGHT; OVALOCYTES SLIGHT; POIKILOCYTOSIS 1+; POLYCHROMASIA 1+
[2017-10-19 08:30] LABS: PLATELET COMMENT DECREASED; TEAR DROP CELLS SLIGHT
[2017-10-19] MEDS ORDERED: CALCIUM CARBONATE 500 MG TABLET PO SCH (10:00)
[2017-10-19] MEDS ORDERED: ENALAPRIL MALEATE 10 MG TABLET PO SCH (10:00)
[2017-10-19] MEDS ORDERED: MULTIVIT-STRESS FORMULA/ZINC TABLET PO SCH (10:00)
--- NOTE | 2017-10-19 11:50 | PDOC H&P ---
History of Present Illness Admission Date/PCP: 10/18/17 14:33 DORIS ELLIS History of Present Illness: VIJI VARGAS is a 82 year old female, she came to the emergency room for evaluation of generalized weakness, in the emergency room she was evaluated the hemogram revealed hemoglobin 5.4, platelet count 11,000. She apparently is being evaluated outpatient by regulatory affairs coordinator for the bicytopenia, she is scheduled to have a bone marrow biopsy next week, I suspect she may have myelodysplastic syndrome. She is admitted to be transfused with packed red blood cells. There is no indication at this time to transfuse platelets because she is not bleeding. She was advised to be admitted inpatient for diagnostic evaluation with bone marrow biopsy and also flow cytometry, but she insisted she would like to be discharged home after the blood transfusion Past Medical History Cardiac Medical History: Reports: Hypertension - LISINOPRIL, AMLODIPINE Hematology: Reports: Anemia Social History Smoking Status: Never Smoker Drugs: None Family History Family History: None Parental Family History Reviewed: Yes Children Family History Reviewed: Yes Sibling(s) Family History Reviewed.: Yes Medication/Allergy Home Medications: Fosinopril Sodium [Monopril] 20 mg PO DAILY 07/08/17 Metoprolol Succinate [Toprol Xl 25 mg Tab.sr] 25 mg PO DAILY 07/08/17 Mirtazapine [Remeron] 30 mg PO HSP PRN 07/08/17 Calcium Carbonate [Calcium] 500 mg PO DAILY 10/06/17 Loratadine [Claritin] 10 mg PO DAILYP PRN 10/06/17 Multivit-Min/Iron/Folic/Lutein [Centrum Silver Women Tablet] 1 each PO DAILY Vit C/Vit E/Lutein/Min/[place]-3 [Ocuvite Softgel] 1 each PO DAILY 10/06/17 Allergies/Adverse Reactions: codeine [Codeine] Adverse Reaction (Verified 10/18/17 10:33) Nausea Review of Systems Constitutional: PRESENT: weakness Eyes: ABSENT: visual disturbances Ears: ABSENT: hearing changes Cardiovascular: ABSENT: chest pain, dyspnea on exertion, edema, orthropnea, palpitations Respiratory: ABSENT: cough, hemoptysis Gastrointestinal: ABSENT: abdominal pain, constipation, diarrhea, hematemesis, hematochezia, nausea, vomiting Genitourinary: ABSENT: dysuria, hematuria Musculoskeletal: ABSENT: joint swelling Integumentary: ABSENT: rash, wounds Neurological: ABSENT: abnormal gait, abnormal speech, confusion, dizziness, focal weakness, syncope Psychiatric: ABSENT: anxiety, depression, homidical ideation, suicidal ideation Endocrine: ABSENT: cold intolerance, heat intolerance, menstrual abnormalities, polydipsia, polyuria Hematologic/Lymphatic: ABSENT: easy bleeding, easy bruising, lymphadenopathy Physical Exam Vital Signs: Temp Pulse Resp BP Pulse Ox 97.9 F 96 16 167/87 H 100 10/19/17 11:14 10/19/17 11:14 10/19/17 11:14 10/19/17 11:14 10/19/17 11:14 Intake & Output 10/18/17 10/19/17 10/20/17 06:59 06:59 06:59 Intake Total 635 168 Output Total 0 Balance 635 168 Weight 39 kg General appearance: PRESENT: no acute distress, thin Head exam: PRESENT: atraumatic, normocephalic Eye exam: PRESENT: conjunctiva pale Ear exam: PRESENT: normal external ear exam Mouth exam: PRESENT: moist, tongue midline Neck exam: PRESENT: full ROM Respiratory exam: PRESENT: clear to auscultation laura Cardiovascular exam: PRESENT: RRR, +S1, +S2 Pulses: PRESENT: normal dorsalis pedis pul, +2 pedal pulses bilateral Vascular exam: PRESENT: normal capillary refill GI/Abdominal exam: PRESENT: normal bowel sounds, soft Rectal exam: PRESENT: deferred Neurological exam: PRESENT: alert, awake, oriented to person, oriented to place , oriented to time, oriented to situation, CN II-XII grossly intact Psychiatric exam: PRESENT: appropriate affect, normal mood Skin exam: PRESENT: dry, intact, warm Results Laboratory Results: 10/19/17 06:19 10/19/17 06:19 10/18/17 10/18/17 10/18/17 16:39 19:15 19:15 WBC RBC Hgb Hct MCV MCH MCHC RDW Plt Count Seg Neutrophils % Lymphocytes % Monocytes % Eosinophils % Basophils % Absolute Neutrophils Absolute Lymphocytes Absolute Monocytes Absolute Eosinophils Absolute Basophils Sodium Potassium Chloride Carbon Dioxide Anion Gap BUN Creatinine Est GFR ( Amer) Est GFR (Non-Af Amer) Glucose Calcium Phosphorus 3.7 Magnesium 2.4 H Total Bilirubin AST ALT Alkaline Phosphatase Ammonia < 8.7 L Total Protein Albumin Triglycerides Cholesterol LDL Cholesterol Direct VLDL Cholesterol HDL Cholesterol Amylase 68 Lipase 143.0 Urine Color YELLOW Urine Appearance SLIGHTLY-CLOUDY Urine pH 5.0 Ur Specific [place] 1.012 Urine Protein NEGATIVE Urine Glucose (UA) NEGATIVE Urine Ketones NEGATIVE Urine Blood NEGATIVE Urine Nitrite POSITIVE H Ur Leukocyte Esterase LARGE H Urine WBC (Auto) 52 Urine RBC (Auto) 1 10/18/17 10/19/17 10/19/17 22:08 06:19 06:19 WBC 4.7 3.9 L RBC 2.71 L 2.81 L Hgb 9.9 L D 10.1 L Hct 27.8 L 27.5 L MCV 102 H 98 H D MCH 36.6 H 35.7 H MCHC 35.8 36.6 H RDW 14.4 H 15.3 H Plt Count 11 L* 14 L* Seg Neutrophils % Not Reportable Not Reportable Lymphocytes % Not Reportable Not Reportable Monocytes % Not Reportable Not Reportable Eosinophils % Not Reportable Not Reportable Basophils % Not Reportable Not Reportable Absolute Neutrophils Not Reportable Not Reportable Absolute Lymphocytes Not Reportable Not Reportable Absolute Monocytes Not Reportable Not Reportable Absolute Eosinophils Not Reportable Not Reportable Absolute Basophils Not Reportable Not Reportable Sodium 142.6 Potassium 5.1 H Chloride 109 H Carbon Dioxide 22 Anion Gap 12 BUN 44 H Creatinine 1.56 H Est GFR ( Amer) 38 L Est GFR (Non-Af Amer) 32 L Glucose 150 H Calcium 8.6 Phosphorus Magnesium Total Bilirubin 0.7 AST 19 ALT 27 Alkaline Phosphatase 68 Ammonia Total Protein 6.4 Albumin 3.3 L Triglycerides 189 H Cholesterol 139.98 LDL Cholesterol Direct 65 VLDL Cholesterol 37.8 H HDL Cholesterol 35 L Amylase Lipase Urine Color Urine Appearance Urine pH Ur Specific [place] Urine Protein Urine Glucose (UA) Urine Ketones Urine Blood Urine Nitrite Ur Leukocyte Esterase Urine WBC (Auto) Urine RBC (Auto) Impressions: Chest X-Ray 10/18/17 10:32 IMPRESSION: CHRONIC INTERSTITIAL CHANGES RIGHT UPPER LOBE. NO ACUTE INFILTRATES SEEN. Assessment & Plan - Diagnosis (1) Anemia Qualifiers: Bone marrow failure anemia type: unspecified bone marrow failure Is this a current diagnosis for this admission?: Yes Plan: She probably have myelodysplastic syndrome, she be transfused with 2's of packed red blood cells (2) Thrombocytopenia Is this a current diagnosis for this admission?: Yes (3) Undernutrition Is this a current diagnosis for this admission?: Yes
--- NOTE | 2017-10-19 11:57 | PDOC DISCHARGE SUMMARY ---
General - Admit/Disc Date/PCP Admission Date/Primary Care Provider: 10/18/17 14:33 DORISEL ELLIS Discharge Date: 10/19/17 - Discharge Diagnosis (1) Anemia Is this a current diagnosis for this admission?: Yes (2) Thrombocytopenia Is this a current diagnosis for this admission?: Yes (3) Undernutrition Is this a current diagnosis for this admission?: Yes (4) Essential (primary) hypertension Is this a current diagnosis for this admission?: Yes - Additional Information Home Medications: Fosinopril Sodium [Monopril] 20 mg PO DAILY 07/08/17 Metoprolol Succinate [Toprol Xl 25 mg Tab.sr] 25 mg PO DAILY 07/08/17 Mirtazapine [Remeron] 30 mg PO HSP PRN 07/08/17 Calcium Carbonate [Calcium] 500 mg PO DAILY 10/06/17 Loratadine [Claritin] 10 mg PO DAILYP PRN 10/06/17 Multivit-Min/Iron/Folic/Lutein [Centrum Silver Women Tablet] 1 each PO DAILY Vit C/Vit E/Lutein/Min/[place]-3 [Ocuvite Softgel] 1 each PO DAILY 10/06/17 History of Present Illness History of Present Illness: VIJI VARGAS is a 82 year old female, she came to the emergency room for evaluation of generalized weakness, in the emergency room she was evaluated the hemogram revealed hemoglobin 5.4, platelet count 11,000. She apparently is being evaluated outpatient by powerhouse electrician for the bicytopenia, she is scheduled to have a bone marrow biopsy next week, I suspect she may have myelodysplastic syndrome. She is admitted to be transfused with packed red blood cells. There is no indication at this time to transfuse platelets because she is not bleeding. She was advised to be admitted inpatient for diagnostic evaluation with bone marrow biopsy and also flow cytometry, but she insisted she would like to be discharged home after the blood transfusion Hospital Course Hospital Course: Patient was admitted for the management of severe anemia and thrombocytopenia. She was transfused with packed red blood cells, the hemoglobin improved from 5- 10, the platelet count improved from 11,000-15,000, she wants to go home today, she is scheduled to have bone marrow biopsy this week, she insisted on going home today, she was advised of the danger of severe thrombocytopenia which include spontaneous hemorrhage into the brain or another organ system Physical Exam Vital Signs: Temp Pulse Resp BP Pulse Ox 97.9 F 96 16 167/87 H 100 10/19/17 11:14 10/19/17 11:14 10/19/17 11:14 10/19/17 11:14 10/19/17 11:14 Intake & Output 10/18/17 10/19/17 10/20/17 06:59 06:59 06:59 Intake Total 635 168 Output Total 0 Balance 635 168 Weight 39 kg General appearance: PRESENT: thin Head exam: PRESENT: atraumatic, normocephalic Eye exam: PRESENT: conjunctiva pink Ear exam: PRESENT: normal external ear exam Mouth exam: PRESENT: moist, tongue midline Neck exam: PRESENT: full ROM Cardiovascular exam: PRESENT: RRR Vascular exam: PRESENT: normal capillary refill GI/Abdominal exam: PRESENT: normal bowel sounds, soft Rectal exam: PRESENT: deferred Neurological exam: PRESENT: alert, CN II-XII grossly intact Psychiatric exam: PRESENT: appropriate affect, normal mood Skin exam: PRESENT: dry, intact, warm Results Laboratory Results: 10/19/17 06:19 10/19/17 06:19 10/18/17 10/18/17 10/18/17 16:39 19:15 19:15 WBC RBC Hgb Hct MCV MCH MCHC RDW Plt Count Seg Neutrophils % Lymphocytes % Monocytes % Eosinophils % Basophils % Absolute Neutrophils Absolute Lymphocytes Absolute Monocytes Absolute Eosinophils Absolute Basophils Sodium Potassium Chloride Carbon Dioxide Anion Gap BUN Creatinine Est GFR ( Amer) Est GFR (Non-Af Amer) Glucose Calcium Phosphorus 3.7 Magnesium 2.4 H Total Bilirubin AST ALT Alkaline Phosphatase Ammonia < 8.7 L Total Protein Albumin Triglycerides Cholesterol LDL Cholesterol Direct VLDL Cholesterol HDL Cholesterol Amylase 68 Lipase 143.0 Urine Color YELLOW Urine Appearance SLIGHTLY-CLOUDY Urine pH 5.0 Ur Specific [place] 1.012 Urine Protein NEGATIVE Urine Glucose (UA) NEGATIVE Urine Ketones NEGATIVE Urine Blood NEGATIVE Urine Nitrite POSITIVE H Ur Leukocyte Esterase LARGE H Urine WBC (Auto) 52 Urine RBC (Auto) 1 10/18/17 10/19/17 10/19/17 22:08 06:19 06:19 WBC 4.7 3.9 L RBC 2.71 L 2.81 L Hgb 9.9 L D 10.1 L Hct 27.8 L 27.5 L MCV 102 H 98 H D MCH 36.6 H 35.7 H MCHC 35.8 36.6 H RDW 14.4 H 15.3 H Plt Count 11 L* 14 L* Seg Neutrophils % Not Reportable Not Reportable Lymphocytes % Not Reportable Not Reportable Monocytes % Not Reportable Not Reportable Eosinophils % Not Reportable Not Reportable Basophils % Not Reportable Not Reportable Absolute Neutrophils Not Reportable Not Reportable Absolute Lymphocytes Not Reportable Not Reportable Absolute Monocytes Not Reportable Not Reportable Absolute Eosinophils Not Reportable Not Reportable Absolute Basophils Not Reportable Not Reportable Sodium 142.6 Potassium 5.1 H Chloride 109 H Carbon Dioxide 22 Anion Gap 12 BUN 44 H Creatinine 1.56 H Est GFR ( Amer) 38 L Est GFR (Non-Af Amer) 32 L Glucose 150 H Calcium 8.6 Phosphorus Magnesium Total Bilirubin 0.7 AST 19 ALT 27 Alkaline Phosphatase 68 Ammonia Total Protein 6.4 Albumin 3.3 L Triglycerides 189 H Cholesterol 139.98 LDL Cholesterol Direct 65 VLDL Cholesterol 37.8 H HDL Cholesterol 35 L Amylase Lipase Urine Color Urine Appearance Urine pH Ur Specific [place] Urine Protein Urine Glucose (UA) Urine Ketones Urine Blood Urine Nitrite Ur Leukocyte Esterase Urine WBC (Auto) Urine RBC (Auto) Impressions: Chest X-Ray 10/18/17 10:32 IMPRESSION: CHRONIC INTERSTITIAL CHANGES RIGHT UPPER LOBE. NO ACUTE INFILTRATES SEEN. Qualifiers - * PATIENT BEING DISCHARGED WITH ANY OF THE FOLLOWING DIAGNOSIS: No
[2017-10-19 11:59] VITALS: BP 128/56
[2017-10-20 15:34] LABS: PATH REVIEW PATHOLOGIST REVIEWED
== END 2017-10-19 12:25 | disposition home or self-care (01) | DRG 812 ==
LOC: ER 10:18 → UNDOADMIN 14:33 → EH 14:33 → 3N 20:40
PROVIDERS: ADMIT Internal Medicine Geriatric Medicine; ATTEND Internal Medicine Geriatric Medicine
PROC: 30233N1 Transfusion of Nonautologous Red Blood Cells into Peripheral Vein, Percutaneous Approach (ICD-10-PCS; principal; 2017-10-18)
DX: D64.9 Anemia, unspecified (principal); E46 Unspecified protein-calorie malnutrition; Z68.1 Body mass index [BMI] 19.9 or less, adult; D69.6 Thrombocytopenia, unspecified; I10 Essential (primary) hypertension
CPT/HCPCS: 36415; 36430; 71046; 80053; 80061; 80307; 81001; 82140; 82150; 83036; 83690; 83735; 84100; 84439; 84443; 84484; 85025; 85730; 86850; 86900; 86901; 86920; 86922; 87086; 87088; 87186; 93005; 93010; 99291; J3490; P9016

== ENCOUNTER 2017-11-13 09:33 | Outpatient (CLI) | payer MEDICARE, BC ==
[2017-11-13] MEDS: NORMAL SALINE 250 ML IV PRN ×2 (10:50→13:34)
[2017-11-13 11:15] LABS: MEAN CORPUSCULAR HEMOGLOBIN 36.2 pg (27.0-33.4); MEAN CORPUSCULAR HGB CONC 36.2 g/dL (32.0-36.0); MEAN CORPUSCULAR VOLUME 100 fl (80-97); RED BLOOD COUNT 1.71 10^6/uL (3.72-5.28); RED CELL DISTRIBUTION WIDTH 16.6 % (11.5-14.0)
[2017-11-13 12:09] LABS: HEMOGLOBIN 6.2 g/dL (12.0-15.5)
[2017-11-13 12:10] LABS: PLATELET COUNT 27 10^3/uL (150-450)
[2017-11-13 23:11] LABS: HEMATOCRIT 35.7 % (36.0-47.0); MEAN CORPUSCULAR HEMOGLOBIN 36.1 pg (27.0-33.4); MEAN CORPUSCULAR HGB CONC 36.3 g/dL (32.0-36.0); MEAN CORPUSCULAR VOLUME 99 fl (80-97); RED BLOOD COUNT 3.59 10^6/uL (3.72-5.28); RED CELL DISTRIBUTION WIDTH 15.5 % (11.5-14.0); WHITE BLOOD COUNT 6.9 10^3/uL (4.0-10.5)
[2017-11-13 23:37] LABS: PLATELET COUNT 27 10^3/uL (150-450)
[2017-11-14 00:04] VITALS: BP 148/54
== END 2017-11-14 00:23 | disposition home or self-care (01) ==
LOC: LAB 09:33 → 5TH 09:43 → 2N 18:10 → LAB 11-14 00:23
PROVIDERS: ATTEND Internal Medicine Medical Oncology
PROC: 30253N1 (ICD-10-PCS; principal; 2017-11-13)
DX: D46.4 Refractory anemia, unspecified (principal)
CPT/HCPCS: 86900; 86901; 36415; 36430; 86850; 86922; 85027; 86920; P9016; A9270 ×2

== ENCOUNTER 2017-11-19 17:03 | Inpatient (IN) | payer MEDICARE, BC ==
--- NOTE | 2017-11-19 18:21 | ER Document Report ---
ED Medical Screen (RME) - General Chief Complaint: Shortness Of Breath Stated Complaint: SHORTNESS OF BREATH Time Seen by Provider: 11/19/17 18:16 TRAVEL OUTSIDE OF THE [place] IN LAST 30 DAYS: No - HPI Notes: 11/19/17 18:20 Shortness of breath ongoing today just her Neupogen by Dr. Valle - Related Data Allergies/Adverse Reactions: codeine [Codeine] Adverse Reaction (Verified 11/19/17 18:19) Nausea Past Medical History - Social History Chew tobacco use (# tins/day): No Frequency of alcohol use: None Drug Abuse: None - Past Medical History Cardiac Medical History: Reports: Hx Hypertension - LISINOPRIL, AMLODIPINE Denies: Hx Heart Attack Pulmonary Medical History: Denies: Hx Asthma Neurological Medical History: Denies: Hx Cerebrovascular Accident, Hx Seizures Renal/ Medical History: Denies: Hx Peritoneal Dialysis GI Medical History: Denies: Hx Hepatitis, Hx Hiatal Hernia, Hx Ulcer Infectious Medical History: Denies: Hx Hepatitis Past Surgical History: Denies: Hx Hysterectomy, Hx Mastectomy, Hx Open Heart Surgery, Hx Pacemaker - Immunizations Hx Diphtheria, Pertussis, Tetanus Vaccination: No History of Influenza Vaccine for 03/2017 - 08/2017 Season: Refused Review of Systems - Review of Systems Respiratory: Cough, Short of breath Physical Exam - Vital signs Vitals: Temp Pulse Resp BP Pulse Ox 98.4 F 133 H 20 126/52 H 89 L 11/19/17 17:25 11/19/17 17:25 11/19/17 17:25 11/19/17 17:25 11/19/17 17:25 - General General appearance: Appears well - Respiratory Respiratory status: No respiratory distress Chest status: Nontender Course - Vital Signs Vital signs: Temp Pulse Resp BP Pulse Ox 98.4 F 133 H 20 126/52 H 89 L 11/19/17 17:25 11/19/17 17:25 11/19/17 17:25 11/19/17 17:25 11/19/17 17:25 Doctor's Discharge - Discharge Referrals: DORIS ELLIS MD [Primary Care Provider] - Follow up as needed
--- NOTE | 2017-11-19 18:57 | RADIOLOGY REPORT (SQ) ---
EXAM DESCRIPTION: CHEST SINGLE VIEW COMPLETED DATE/TIME: 11/19/2017 6:50 pm REASON FOR STUDY: sob COMPARISON: 10/18/2017 EXAM PARAMETERS: NUMBER OF VIEWS: One view. TECHNIQUE: Single frontal radiographic view of the chest acquired. RADIATION DOSE: NA LIMITATIONS: None. FINDINGS: LUNGS AND PLEURA: Hyperexpansion of the lungs. Small right pleural effusion. Chronic int erstitial changes. No acute infiltrate. No mass. MEDIASTINUM AND HILAR STRUCTURES: No masses. Contour normal. HEART AND VASCULAR STRUCTURES: Heart normal in size. Normal vasculature. BONES: No acute findings. HARDWARE: None in the chest. OTHER: No other significant finding. IMPRESSION: Chronic lung changes with no acute pulmonary disease. Small right pleural effusion is n ew. TECHNICAL DOCUMENTATION: JOB ID: [id number] [employer]- All Rights Reserved Reading location - IP/workstation name: [email or web address]
--- NOTE | 2017-11-19 19:22 | ER Document Report ---
ED General - General Mode of Arrival: Medic Information source: Patient, Relative TRAVEL OUTSIDE OF THE [place] IN LAST 30 DAYS: No <LEWIS GOODMAN - Last Filed: 11/19/17 19:30> <JESICA NIELSEN - Last Filed: 11/20/17 00:57> - General Chief Complaint: Shortness Of Breath Stated Complaint: SHORTNESS OF BREATH Time Seen by Provider: 11/19/17 18:16 Notes: Patient is an 82 year old female with MDS, diabetes type 2, HTN and osteoporosis presents to the emergency department complaining of shortness of breath onset around 1600. Patient states these symptoms have happened before whenever she was anemic. Daughter at bedside states the patient was seen at [facility] on November 13, 2017 and received Dacogen with 3 units of packed red cells. Daughter also mentions a fever of 102 prior to arrival to the emergency department. (LEWIS GOODMAN) On initial physical exam, the patient felt quite hot to me. I ordered a rectal temperature done and it was 102.3, septic type workup was initiated. (JESICA NIELSEN) - Related Data Allergies/Adverse Reactions: codeine [Codeine] Adverse Reaction (Verified 11/19/17 18:19) Nausea Past Medical History - General Information source: Patient, Relative - Social History Smoking Status: Former Smoker - quit in appoxtely 1999. Chew tobacco use (# tins/day): No Frequency of alcohol use: None Drug Abuse: None Family History: None Patient has suicidal ideation: No Patient has homicidal ideation: No - Past Medical History Cardiac Medical History: Reports: Hx Hypertension - LISINOPRIL, AMLODIPINE - Immunizations Hx Diphtheria, Pertussis, Tetanus Vaccination: No <LEWIS GOODMAN - Last Filed: 11/19/17 19:30> Review of Systems - Review of Systems Constitutional: No symptoms reported EENT: No symptoms reported Cardiovascular: No symptoms reported Respiratory: See HPI, Short of breath Gastrointestinal: No symptoms reported Genitourinary: No symptoms reported Female Genitourinary: No symptoms reported Musculoskeletal: No symptoms reported Skin: No symptoms reported Hematologic/Lymphatic: No symptoms reported Neurological/Psychological: No symptoms reported -: Yes All other systems reviewed and negative <LEWIS GOODMAN - Last Filed: 11/19/17 19:30> Physical Exam - General General appearance: Appears well, Alert In distress: None - HEENT Head: Normocephalic, Atraumatic Eyes: Normal Conjunctiva: Other - Pale Extraocular movements intact: Yes Pupils: PERRL Neck: Normal - Respiratory Respiratory status: Tachypnea Chest status: Nontender Breath sounds: Normal Chest palpation: Normal - Cardiovascular Rhythm: Regular, Tachycardia Heart sounds: Normal auscultation Murmur: No Friction rub: No Gallop: None auscultated - Abdominal Inspection: Normal Distension: No distension Bowel sounds: Normal Tenderness: Nontender Organomegaly: No organomegaly - Back Back: Normal - Extremities General upper extremity: Normal ROM General lower extremity: Normal ROM. No: Edema - Neurological Neuro grossly intact: Yes Cognition: Normal Orientation: AAOx4 Lang Coma Scale Eye Opening: Spontaneous Casanova Coma Scale Verbal: Oriented Lang Coma Scale Motor: Obeys Commands Casanova Coma Scale Total: 15 Speech: Normal - Psychological Associated symptoms: Normal affect, Normal mood - Skin Skin Temperature: Warm - Quite warm across the back, chest and abdomen. BLE cool to touch. Skin Moisture: Dry Skin Color: Normal <LEWIS GOODMAN - Last Filed: 11/19/17 19:30> - Vital signs Vitals: Temp Pulse Resp BP Pulse Ox 98.4 F 133 H 20 126/52 H 89 L 11/19/17 17:25 11/19/17 17:25 11/19/17 17:25 11/19/17 17:25 11/19/17 17:25 Course <LEWIS GOODMAN - Last Filed: 11/19/17 19:30> - Laboratory Result Diagrams: 11/19/17 21:05 11/19/17 20:38 - Diagnostic Test Radiology reviewed: Image reviewed, Reports reviewed - Chronic lung changes, hyperinflation of the lungs, trace pleural effusions. <JESICA NIELSEN - Last Filed: 11/20/17 00:57> - Re-evaluation Re-evalutation: 11/20/17 00:56 The patient had been on oxygen the whole time I was seeing her with good pulse ox. At triage they recorded a pulse ox of 89%. I took her off of oxygen for quite some time and her pulse ox has remained in the 98-100% range on room air. At this point there is no clear explanation for her subjective shortness of breath. Her blood pressure is 134/81 and her pulse is 98. She is quite comfortable lying in the bed. (JESICA NIELSEN) - Vital Signs Vital signs: Temp Pulse Resp BP Pulse Ox 100.3 F 128 H 23 H 148/69 H 100 11/19/17 20:35 11/19/17 19:50 11/20/17 00:01 11/20/17 00:00 11/20/17 00:01 - Laboratory Laboratory results interpreted by me: 11/19/17 11/19/17 11/19/17 20:05 20:38 21:05 WBC 2.6 L RBC 3.11 L Hgb 10.8 L Hct 30.3 L MCH 34.7 H RDW 16.0 H Plt Count 20 L* PT 16.0 H Sodium 134.7 L BUN 34 H Creatinine 1.48 H Est GFR ( Amer) 41 L Est GFR (Non-Af Amer) 34 L Glucose 269 H Calcium 8.3 L Creatine Kinase < 20 L Albumin 3.3 L Urine Protein Urine Glucose (UA) Urine Blood Ur Leukocyte Esterase Urine Ascorbic Acid 11/19/17 23:53 WBC RBC Hgb Hct MCH RDW Plt Count PT Sodium BUN Creatinine Est GFR ( Amer) Est GFR (Non-Af Amer) Glucose Calcium Creatine Kinase Albumin Urine Protein 100 H Urine Glucose (UA) 150 H Urine Blood SMALL H Ur Leukocyte Esterase SMALL H Urine Ascorbic Acid 40 H Discharge <LEWIS GOODMAN - Last Filed: 11/19/17 19:30> - Discharge Admitting Provider: Zain Unit Admitted: Telemetry <JESICA NIELSEN - Last Filed: 11/20/17 00:57> - Discharge Clinical Impression: Myelodysplastic syndrome Dyspnea Qualifiers: Dyspnea type: unspecified Qualified Code(s): R06.00 - Dyspnea, unspecified Fever Qualifiers: Fever type: unspecified Qualified Code(s): R50.9 - Fever, unspecified Urinary tract infection Qualifiers: Urinary tract infection type: site unspecified Hematuria presence: without hematuria Qualified Code(s): N39.0 - Urinary tract infection, site not specified Neutropenia Qualifiers: Neutropenia type: unspecified Qualified Code(s): D70.9 - Neutropenia, unspecified Condition: Good Disposition: ADMITTED INPATIENT Referrals: DORIS ELLIS MD [Primary Care Provider] - Follow up as needed Scribe Attestation: 11/19/17 20:13 I personally performed the services described in the documentation, reviewed and edited the documentation which was dictated to the scribe in my presence, and it accurately records my words and actions. (JESICA NIELSEN) Scribe Documentation - Scribe Written by Scribe:: Ever Garcia, 11/19/2017 19:38 acting as scribe for :: Cody <LEWIS GOODMAN - Last Filed: 11/19/17 19:30>
--- NOTE | 2017-11-19 19:41 | EKG REPORT ---
SEVERITY:- ABNORMAL ECG - SINUS TACHYCARDIA VENTRICULAR PREMATURE COMPLEX PROBABLE LEFT ATRIAL ABNORMALITY BORDERLINE LEFT AXIS DEVIATION BORDERLINE R WAVE PROGRESSION, ANTERIOR LEADS : Confirmed by: Yasmany Acuña MD 19-Nov-2017 19:40:16
[2017-11-19] MEDS ORDERED: ACETAMINOPHEN 325 MG TABLET PO ONE (20:14)
[2017-11-19 20:31] LABS: INTERNATIONAL RATION (INR) 1.22
[2017-11-19 21:08] LABS: VENOUS BLOOD BASE EXCESS -4.5 mmol/L; VENOUS BLOOD HCO3 21.3 mmol/L (20-32); VENOUS BLOOD PH 7.32 (7.30-7.42)
[2017-11-19 21:13] LABS: ALANINE AMINOTRANSFERASE 30 U/L (9-52); ALBUMIN 3.3 g/dL (3.5-5.0); ALKALINE PHOSPHATASE 86 U/L (38-126); ANION GAP 9 (5-19); ASPARTATE AMINO TRANSFERASE 24 U/L (14-36); BILIRUBIN,DIRECT 0.3 mg/dL (0.0-0.4); BILIRUBIN,TOTAL 0.8 mg/dL (0.2-1.3); BLOOD UREA NITROGEN 34 mg/dL (7-20); CALCIUM 8.3 mg/dL (8.4-10.2); CARBON DIOXIDE 22 mmol/L (22-30); CHLORIDE 104 mmol/L (98-107); GLUCOSE 269 mg/dL (75-110); LIPASE 120.8 U/L (23-300); POTASSIUM 4.9 mmol/L (3.6-5.0); SODIUM 134.7 mmol/L (137-145); TOTAL PROTEIN 6.5 g/dL (6.3-8.2)
[2017-11-19 21:18] LABS: CREATINE KINASE < 20 U/L (30-135)
[2017-11-19 21:26] LABS: HEMATOCRIT 30.3 % (36.0-47.0); HEMOGLOBIN 10.8 g/dL (12.0-15.5); MEAN CORPUSCULAR HEMOGLOBIN 34.7 pg (27.0-33.4); MEAN CORPUSCULAR HGB CONC 35.6 g/dL (32.0-36.0); MEAN CORPUSCULAR VOLUME 97 fl (80-97); RED BLOOD COUNT 3.11 10^6/uL (3.72-5.28); WHITE BLOOD COUNT 2.6 10^3/uL (4.0-10.5)
[2017-11-19 21:44] LABS: CREATINE KINASE MB 0.25 ng/mL (<4.55)
[2017-11-19 21:46] LABS: TROPONIN I < 0.012 ng/mL
[2017-11-19 21:48] LABS: ABSOLUTE LYMPHOCYTES# (MANUAL) 0.5 10^3/uL (0.5-4.7); ABSOLUTE MONOCYTES # (MANUAL) 0.3 10^3/uL (0.1-1.4); ABSOLUTE NEUTROPHILS# (MANUAL) 1.8 10^3/uL (1.7-8.2); BASOPHILS % (MANUAL) 0 % (0-2); EOSINOPHILS % (MANUAL) 0 % (0-6); LYMPHOCYTES % (MANUAL) 16 % (13-45); MONOCYTES % (MANUAL) 13 % (3-13); SEGMENTED NEUTROPHILS % (MAN) 69 % (42-78); TOTAL CELLS COUNTED 100
[2017-11-19 21:49] LABS: ANISOCYTOSIS 1+; PLATELET COMMENT DECREASED; POIKILOCYTOSIS SLIGHT; TOXIC GRANULATION SLIGHT
[2017-11-19 21:53] LABS: PLATELET COUNT 20 10^3/uL (150-450)
[2017-11-19] MEDS ORDERED: NORMAL SALINE 1000 ML 1,000 ML IV ONE (22:21)
[2017-11-19] MEDS ORDERED: ERTAPENEM SODIUM INJ 1 GM VIAL IV ONE (23:33)
[2017-11-20 00:40] LABS: APPEARANCE,URINE CLOUDY; BILIRUBIN,URINE NEGATIVE (NEGATIVE); COLOR,URINE AMBER; GLUCOSE, URINE 150 mg/dL (NEGATIVE); KETONES,URINE NEGATIVE (NEGATIVE); LEUKOCYTE ESTERASE,URINE SMALL (NEGATIVE); NITRITE,URINE NEGATIVE (NEGATIVE); PROTEIN,URINE 100 mg/dL (NEGATIVE); URINE SPECIFIC GRAVITY 1.014; UROBILINOGEN,URINE NEGATIVE mg/dL (<2.0)
[2017-11-20] MEDS ORDERED: DEXTROSE 40% GEL 15 GM TUBE X 2 PO PRN (07:16)
[2017-11-20] MEDS ORDERED: INSULIN LISPRO 100 UNIT/ML 3 ML VIAL SUBCUT PRN (07:16)
[2017-11-20] MEDS ORDERED: DEXTROSE 40% GEL 15 GM TUBE PO PRN (07:16)
[2017-11-20] MEDS ORDERED: DEXTROSE 50%-WATER SYRINGE 12.5 GM/25 ML DOSE IV PRN (07:16)
[2017-11-20] MEDS ORDERED: DEXTROSE 50%-WATER SYRINGE 25 GM/50 ML DOSE IV PRN (07:16)
[2017-11-20] MEDS ORDERED: GLUCAGON,HUMAN RECOMB 1 MG INJ IM PRN (07:16)
[2017-11-20] MEDS ORDERED: INSULIN LISPRO 100 UNIT/ML 3 ML VIAL SUBCUT SCH (08:00)
[2017-11-20] MEDS ORDERED: LORATADINE 10 MG TABLET PO PRN (12:43)
[2017-11-20] MEDS ORDERED: (PENDING PHARMACY ID) (Ondansetron Hcl [Zofran 4 Mg Tablet] 4 MG) PO PRN (12:43)
[2017-11-20] MEDS ORDERED: TRAMADOL HCL 50 MG TABLET PO PRN (12:43)
[2017-11-20] MEDS ORDERED: RISEDRONATE SODIUM 150 MG PO SCH (12:45)
[2017-11-20] MEDS ORDERED: ONDANSETRON 4 MG TAB.RAPDIS PO PRN (12:46)
[2017-11-20] MEDS ORDERED: METOPROLOL SUCCINATE 25 MG TAB.SR.24H PO ONE (13:45)
[2017-11-20] MEDS ORDERED: ENALAPRIL MALEATE 10 MG TABLET PO ONE ×2 (13:45)
[2017-11-20] MEDS ORDERED: LISINOPRIL 10 MG TABLET PO ONE (13:45)
--- NOTE | 2017-11-20 18:42 | PDOC H&P ---
History of Present Illness Admission Date/PCP: 11/20/17 01:07 DORIS RHONDA Patient complains of: Difficulty with breathing History of Present Illness: VIJI VARGAS is a 82 year old female known to my practice who presented to the ED with complain of new onset worsening shortness of breath. Patient daughter reported associated fever at home prior to presenting to the ED. She denied coughing , chest pain, nausea or vomiting. No abdominal pain. She denied any nasal or sinus congestion. She denied abdominal pain or diarrhea. She has history of myelodysplastic syndrome with anemia, thrombocytopenia and leukopenia. Her initial evaluation in the ED was significant for documented elevated temperature, tachycardia, tachypnea, abnormal urinalysis, and abnormal CBC indices including anemia, thrombocytopenia and leukopenia. She was advised hospitalization for further evaluation and management. 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 Past Medical History Cardiac Medical History: Reports: Hypertension - LISINOPRIL, AMLODIPINE Denies: Myocardial Infarction Pulmonary Medical History: Denies: Asthma Neurological Medical History: Denies: Seizures Endocrine Medical History: Reports: Diabetes Mellitus Type 2 GI Medical History: Denies: Hepatitis, Hiatal Hernia Hematology: Reports: Anemia, Bleeding Tendencies, Neutropenia, Other - myelodysplasty syndrome Past Surgical History Past Surgical History: Denies: Hysterectomy, Mastectomy, Pacemaker Social History Smoking Status: Former Smoker Last Time Smoked: 27 years ago Frequency of Alcohol Use: Occasional Hx Recreational Drug Use: No Drugs: None Hx Prescription Drug Abuse: No - Advance Directive Resuscitation Status: Full Code Family History Family History: None Parental Family History Reviewed: Yes Children Family History Reviewed: Yes Sibling(s) Family History Reviewed.: Yes Medication/Allergy Home Medications: Fosinopril Sodium [Monopril] 30 mg PO DAILY 07/08/17 Metoprolol Succinate [Toprol Xl 25 mg Tab.sr] 25 mg PO DAILY 07/08/17 Mirtazapine [Remeron] 30 mg PO QHS 07/08/17 Loratadine [Claritin] 10 mg PO DAILYP PRN 10/06/17 Multivit-Min/Iron/Folic/Lutein [Centrum Silver Women Tablet] 1 each PO DAILY Vit C/Vit E/Lutein/Min/Oscoda-3 [Ocuvite Softgel] 1 each PO DAILY 10/06/17 Ondansetron HCl [Zofran 4 mg Tablet] 4 mg PO Q8HP PRN 11/20/17 Risedronate Sodium [Actonel 150 mg Tablet] 150 mg PO [id number] 11/20/17 Tramadol HCl [Ultram 50 mg Tablet] 50 mg PO DAILYP PRN 11/20/17 Allergies/Adverse Reactions: codeine [Codeine] Adverse Reaction (Mild, Verified 11/20/17 11:22) Nausea Review of Systems Constitutional: PRESENT: chills, fever(s). ABSENT: as per HPI, anorexia, fatigue, headache(s), night sweats, weakness, weight gain, weight loss, other Eyes: ABSENT: visual disturbances Ears: ABSENT: hearing changes Nose, Mouth, and Throat: ABSENT: as per HPI, headache(s), mouth pain, sore throat, vertigo, other Cardiovascular: ABSENT: chest pain, dyspnea on exertion, edema, orthropnea, palpitations Respiratory: PRESENT: dyspnea. ABSENT: as per HPI, cough, hemoptysis, sputum, other Gastrointestinal: ABSENT: abdominal pain, constipation, diarrhea, hematemesis, hematochezia, nausea, vomiting Genitourinary: PRESENT: other - Patient repported prior history of UTI. ABSENT : dysuria, hematuria Musculoskeletal: PRESENT: muscle weakness - generalized and related to deconditioning Integumentary: ABSENT: rash, wounds Neurological: ABSENT: abnormal gait, abnormal speech, confusion, dizziness, focal weakness, syncope Psychiatric: ABSENT: anxiety, depression, homidical ideation, suicidal ideation Endocrine: ABSENT: cold intolerance, heat intolerance, polydipsia, polyuria Hematologic/Lymphatic: PRESENT: easy bruising. ABSENT: as per HPI, easy bleeding, lymphadenopathy, other Allergic/Immunologic: ABSENT: as per HPI, seasonal rhinorrhea, other Physical Exam Vital Signs: Temp Pulse Resp BP Pulse Ox 98.9 F 116 H 18 149/70 H 96 11/20/17 14:53 11/20/17 14:54 11/20/17 14:53 11/20/17 14:53 11/20/17 14:53 General appearance: PRESENT: no acute distress, thin Head exam: PRESENT: atraumatic, normocephalic Eye exam: PRESENT: conjunctiva pink, EOMI, PERRLA. ABSENT: scleral icterus Ear exam: PRESENT: normal external ear exam Mouth exam: PRESENT: moist - fairly, tongue midline Teeth exam: ABSENT: dental caries, dental tenderness, edentulous, poor dentation , other Throat exam: ABSENT: post pharyngeal erythema, tonsillar erythema, tonsillar exudate, tonsillogmegaly, other Neck exam: PRESENT: full ROM. ABSENT: carotid bruit, JVD, lymphadenopathy, thyromegaly Respiratory exam: PRESENT: clear to auscultation laura, decreased breath sounds - at lung bases Cardiovascular exam: PRESENT: +S1, +S2, tachycardia. ABSENT: diastolic murmur, systolic murmur Pulses: PRESENT: +2 pedal pulses bilateral Vascular exam: PRESENT: normal capillary refill. ABSENT: pallor GI/Abdominal exam: PRESENT: normal bowel sounds, soft. ABSENT: distended, guarding, mass, organolmegaly, rebound, tenderness Rectal exam: PRESENT: deferred Extremities exam: ABSENT: pedal edema Musculoskeletal exam: PRESENT: deformity - related to multiple joints involvement with arthritis Neurological exam: PRESENT: alert, awake, oriented to person, oriented to place , oriented to time, oriented to situation, CN II-XII grossly intact. ABSENT: motor sensory deficit Psychiatric exam: PRESENT: appropriate affect, normal mood. ABSENT: homicidal ideation, suicidal ideation Skin exam: PRESENT: dry, intact, warm. ABSENT: cyanosis, rash Results Laboratory Results: I reviewed her lab results on [email or web address] and form a significant part of my medical decision making. Impressions: Chest X-Ray 11/19/17 18:20 IMPRESSION: Chronic lung changes with no acute pulmonary disease. Small right pleural effusion is new. Assessment & Plan - Diagnosis (1) SIRS due to Gram-negative infection Is this a current diagnosis for this admission?: Yes Plan: See admitting attending physician orders. (2) UTI (urinary tract infection), bacterial Is this a current diagnosis for this admission?: Yes Plan: See admitting attending physician orders. (3) Myelodysplastic syndrome Is this a current diagnosis for this admission?: Yes Plan: See admitting attending physician orders. (5) Thrombocytopenia Is this a current diagnosis for this admission?: Yes Plan: See admitting attending physician orders. (6) Anemia Qualifiers: Bone marrow failure anemia type: unspecified bone marrow failure Is this a current diagnosis for this admission?: Yes Plan: See admitting attending physician orders. (7) Diabetes mellitus type 2 in nonobese Is this a current diagnosis for this admission?: Yes Plan: See admitting attending physician orders. (8) Essential (primary) hypertension Is this a current diagnosis for this admission?: Yes Plan: See admitting attending physician orders. (9) HLD (hyperlipidemia) Qualifiers: Hyperlipidemia type: unspecified Qualified Code(s): E78.5 - Hyperlipidemia , unspecified Is this a current diagnosis for this admission?: Yes Plan: See admitting attending physician orders. (10) Senile osteoporosis Is this a current diagnosis for this admission?: Yes Plan: See admitting attending physician orders. (11) Failure to thrive syndrome, adult Is this a current diagnosis for this admission?: Yes Plan: See admitting attending physician orders. (12) Osteoarthritis involving multiple joints on both sides of body Is this a current diagnosis for this admission?: Yes Plan: See admitting attending physician orders. - Time Time Spent: 50 to 70 Minutes Medications reviewed and adjusted accordingly: Yes Anticipated discharge: Home with Homehealth Within: Other - Inpatient Certification Based on my medical assessment, after consideration of the patient's comorbidities, presenting symptoms, or acuity I expect that the services needed warrant INPATIENT care.: Yes I certify that my determination is in accordance with my understanding of Medicare's requirements for reasonable and necessary INPATIENT services [42 CFR 412.3e].: Yes Medical Necessity: Need Close Monitoring Due to Risk of Patient Decompensation, Need For IV Fluids, Need For Continuous Telemetry Monitoring, Need for IV Antibiotics, Risk of Complication if Not Cared For in Hospital 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
[2017-11-20] MEDS: MIRTAZAPINE 15 MG TABLET PO SCH (21:45)
[2017-11-20] MEDS: ERTAPENEM SODIUM 0.5 GM in NORMAL SALINE 50 ML IV SCH (21:45)
[2017-11-20] MEDS ORDERED: LISINOPRIL 10 MG TABLET PO SCH (22:00)
[2017-11-20] MEDS ORDERED: ERTAPENEM SODIUM 1 GM in NORMAL SALINE 50 ML IV SCH (22:00)
[2017-11-21 06:39] LABS: HEMATOCRIT 24.9 % (36.0-47.0); HEMOGLOBIN 8.9 g/dL (12.0-15.5); MEAN CORPUSCULAR HEMOGLOBIN 36.2 pg (27.0-33.4); MEAN CORPUSCULAR HGB CONC 35.8 g/dL (32.0-36.0); RED BLOOD COUNT 2.46 10^6/uL (3.72-5.28); WHITE BLOOD COUNT 2.4 10^3/uL (4.0-10.5)
[2017-11-21 06:50] LABS: ALANINE AMINOTRANSFERASE 25 U/L (9-52); ALBUMIN 2.4 g/dL (3.5-5.0); ALKALINE PHOSPHATASE 63 U/L (38-126); ANION GAP 9 (5-19); ASPARTATE AMINO TRANSFERASE 15 U/L (14-36); BILIRUBIN,DIRECT 0.2 mg/dL (0.0-0.4); BILIRUBIN,TOTAL 0.4 mg/dL (0.2-1.3); BLOOD UREA NITROGEN 27 mg/dL (7-20); CALCIUM 8.3 mg/dL (8.4-10.2); CARBON DIOXIDE 18 mmol/L (22-30); CHLORIDE 111 mmol/L (98-107); GLUCOSE 73 mg/dL (75-110); POTASSIUM 4.7 mmol/L (3.6-5.0); SODIUM 137.9 mmol/L (137-145); TOTAL PROTEIN 5.1 g/dL (6.3-8.2)
[2017-11-21 07:51] LABS: MEAN CORPUSCULAR VOLUME 101 fl (80-97)
[2017-11-21 07:53] LABS: PLATELET COUNT 22 10^3/uL (150-450)
[2017-11-21 07:57] LABS: ABSOLUTE LYMPHOCYTES# (MANUAL) 0.7 10^3/uL (0.5-4.7); ABSOLUTE MONOCYTES # (MANUAL) 0.1 10^3/uL (0.1-1.4); ABSOLUTE NEUTROPHILS# (MANUAL) 1.6 10^3/uL (1.7-8.2); BAND NEUTROPHILS % (MANUAL) 2 % (3-5); BASOPHILS % (MANUAL) 0 % (0-2); EOSINOPHILS % (MANUAL) 1 % (0-6); LYMPHOCYTES % (MANUAL) 27 % (13-45); MONOCYTES % (MANUAL) 5 % (3-13); SEGMENTED NEUTROPHILS % (MAN) 63 % (42-78); TOTAL CELLS COUNTED 100
[2017-11-21 07:58] LABS: ANISOCYTOSIS 1+; PLATELET COMMENT DECREASED; POLYCHROMASIA SLIGHT; ROULEAUX SLIGHT; TOXIC GRANULATION SLIGHT
--- NOTE | 2017-11-21 08:28 | PDOC PROGRESS REPORT ---
Subjective Progress Note for:: 11/21/17 Subjective:: No fever or chills. No chest pain or difficulty with breathing. No nausea, vomiting or abdominal pain. Remain on IV Invanz coverage. Reason For Visit: SIRS WITH URINARY TRACT INFECTION; MYELODYSPLASTIC Physical Exam Vital Signs: Temp Pulse Resp BP Pulse Ox 98.6 F 100 16 127/65 H 92 11/21/17 07:26 11/21/17 07:26 11/21/17 07:26 11/21/17 07:26 11/21/17 07:26 Intake & Output 11/20/17 11/21/17 11/22/17 06:59 06:59 06:59 Intake Total 100 Balance 100 Weight 42.2 kg General appearance: PRESENT: no acute distress, thin Head exam: PRESENT: atraumatic, normocephalic Mouth exam: PRESENT: moist Respiratory exam: PRESENT: clear to auscultation laura Cardiovascular exam: PRESENT: RRR. ABSENT: diastolic murmur, rubs, systolic murmur Vascular exam: PRESENT: normal capillary refill. ABSENT: pallor GI/Abdominal exam: PRESENT: normal bowel sounds, soft. ABSENT: distended, guarding, mass, organolmegaly, rebound, tenderness Extremities exam: ABSENT: pedal edema Musculoskeletal exam: PRESENT: normal inspection Neurological exam: PRESENT: alert, awake, oriented to person, oriented to place , oriented to time, oriented to situation, CN II-XII grossly intact. ABSENT: motor sensory deficit Psychiatric exam: PRESENT: appropriate affect, normal mood. ABSENT: homicidal ideation, suicidal ideation Skin exam: PRESENT: dry, intact, warm. ABSENT: cyanosis, rash Results Laboratory Results: 11/21/17 05:20 11/21/17 05:20 11/21/17 11/21/17 05:20 05:20 WBC 2.4 L RBC 2.46 L Hgb 8.9 L Hct 24.9 L MCV 101 H D MCH 36.2 H MCHC 35.8 RDW 16.0 H Plt Count 22 L* Seg Neutrophils % Not Reportable Lymphocytes % Not Reportable Monocytes % Not Reportable Eosinophils % Not Reportable Basophils % Not Reportable Absolute Neutrophils Not Reportable Absolute Lymphocytes Not Reportable Absolute Monocytes Not Reportable Absolute Eosinophils Not Reportable Absolute Basophils Not Reportable Sodium 137.9 Potassium 4.7 Chloride 111 H Carbon Dioxide 18 L Anion Gap 9 BUN 27 H Creatinine 1.33 H Est GFR ( Amer) 46 L Est GFR (Non-Af Amer) 38 L Glucose 73 L Calcium 8.3 L Total Bilirubin 0.4 AST 15 ALT 25 Alkaline Phosphatase 63 Total Protein 5.1 L Albumin 2.4 L Impressions: Chest X-Ray 11/19/17 18:20 IMPRESSION: Chronic lung changes with no acute pulmonary disease. Small right pleural effusion is new. Assessment & Plan - Diagnosis (1) SIRS due to Gram-negative infection Is this a current diagnosis for this admission?: Yes Plan: Continue current medication management. (2) UTI (urinary tract infection), bacterial Is this a current diagnosis for this admission?: Yes Plan: Continue current medication management. Follow up on culture reports. (3) Myelodysplastic syndrome Is this a current diagnosis for this admission?: Yes Plan: Continue current medication management. (4) Leukocytopenia, unspecified Qualifiers: Leukopenia type: unspecified Qualified Code(s): D72.819 - Decreased white blood cell count, unspecified Is this a current diagnosis for this admission?: Yes Plan: Continue current medication management. (5) Thrombocytopenia Is this a current diagnosis for this admission?: Yes Plan: Continue current medication management. Transfuse Platelet is count is less than 20,000. (6) Anemia Qualifiers: Bone marrow failure anemia type: unspecified bone marrow failure Is this a current diagnosis for this admission?: Yes Plan: Continue current medication management. (7) Diabetes mellitus type 2 in nonobese Is this a current diagnosis for this admission?: Yes Plan: Continue current medication management. (8) Essential (primary) hypertension Is this a current diagnosis for this admission?: Yes Plan: Continue current medication management. (9) HLD (hyperlipidemia) Qualifiers: Hyperlipidemia type: unspecified Qualified Code(s): E78.5 - Hyperlipidemia , unspecified Is this a current diagnosis for this admission?: Yes Plan: Continue current medication management. (10) Senile osteoporosis Is this a current diagnosis for this admission?: Yes Plan: Continue current medication management. (11) Failure to thrive syndrome, adult Is this a current diagnosis for this admission?: Yes Plan: Continue current medication management. (12) Osteoarthritis involving multiple joints on both sides of body Is this a current diagnosis for this admission?: Yes Plan: Continue current medication management. - Time Time Spent with patient: 25-34 minutes Medications reviewed and adjusted accordingly: Yes Anticipated discharge: Home with Homehealth Within: Other - Inpatient Certification Based on my medical assessment, after consideration of the patient's comorbidities, presenting symptoms, or acuity I expect that the services needed warrant INPATIENT care.: Yes I certify that my determination is in accordance with my understanding of Medicare's requirements for reasonable and necessary INPATIENT services [42 CFR 412.3e].: Yes Medical Necessity: Need Close Monitoring Due to Risk of Patient Decompensation, Need For IV Fluids, Need For Continuous Telemetry Monitoring, Need for IV Antibiotics, Risk of Complication if Not Cared For in Hospital 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 Repeat CBC and BMP in AM. She may need blood product transfusion. Hold Platelet transfusion unless count is less than 20,000 in view of her chronic state and Myelodysplastic syndrome.
[2017-11-21] MEDS ORDERED: FOSINOPRIL SODIUM PO SCH (10:00)
[2017-11-21] MEDS ORDERED: (PENDING PHARMACY ID) (Multivit-Min/Iron/Folic/Lutein [Centrum Silver Women Tablet] 1 EACH PO SCH (10:00)
[2017-11-21] MEDS ORDERED: (PENDING PHARMACY ID) (Vit C/Vit E/Lutein/Min/Omega-3 [Ocuvite Softgel] 1 EACH) PO SCH (10:00)
[2017-11-21] MEDS: MULTIVITAMIN TABLET PO SCH (12:11)
[2017-11-21] MEDS: ENALAPRIL MALEATE 10 MG TABLET PO SCH (12:12)
[2017-11-21] MEDS: METOPROLOL SUCCINATE 25 MG TAB.SR.24H PO SCH (12:12)
[2017-11-21] MEDS: ERTAPENEM SODIUM 0.5 GM in NORMAL SALINE 50 ML IV SCH (22:56)
[2017-11-21] MEDS: MIRTAZAPINE 15 MG TABLET PO SCH (22:56)
[2017-11-22] MEDS: MULTIVITAMIN TABLET PO SCH (09:26)
[2017-11-22] MEDS: METOPROLOL SUCCINATE 25 MG TAB.SR.24H PO SCH (09:27)
[2017-11-22] MEDS: ENALAPRIL MALEATE 10 MG TABLET PO SCH (09:27)
--- NOTE | 2017-11-22 12:25 | PDOC PROGRESS REPORT ---
Subjective Progress Note for:: 11/22/17 Subjective:: He was seen by the bedside, a complaint of back pain, history of MDS and UTI Reason For Visit: SIRS WITH URINARY TRACT INFECTION; MYELODYSPLASTIC Physical Exam Vital Signs: Temp Pulse Resp BP Pulse Ox 97.7 F 107 H 16 141/64 H 97 11/22/17 08:11 11/22/17 08:11 11/22/17 08:11 11/22/17 08:11 11/22/17 08:11 Intake & Output 11/21/17 11/22/17 11/23/17 06:59 06:59 06:59 Intake Total 100 1292 Output Total 1750 Balance 100 -458 Weight 42.2 kg 42.2 kg General appearance: PRESENT: no acute distress Eye exam: PRESENT: PERRLA Respiratory exam: PRESENT: clear to auscultation laura Cardiovascular exam: PRESENT: +S1, +S2 GI/Abdominal exam: PRESENT: soft Neurological exam: PRESENT: alert Results Laboratory Results: 11/21/17 05:20 11/21/17 05:20 Impressions: Chest X-Ray 11/19/17 18:20 IMPRESSION: Chronic lung changes with no acute pulmonary disease. Small right pleural effusion is new. Assessment & Plan - Diagnosis (1) Urinary tract infection Qualifiers: Urinary tract infection type: site unspecified Hematuria presence: without hematuria Qualified Code(s): N39.0 - Urinary tract infection, site not specified Is this a current diagnosis for this admission?: Yes (2) Myelodysplastic syndrome Is this a current diagnosis for this admission?: Yes - Plan Summary Plan Summary: Continue treatment
[2017-11-22] MEDS: ERTAPENEM SODIUM 0.5 GM in NORMAL SALINE 50 ML IV SCH (22:38)
[2017-11-22] MEDS: MIRTAZAPINE 15 MG TABLET PO SCH (22:38)
[2017-11-23] MEDS: ENALAPRIL MALEATE 10 MG TABLET PO SCH (10:27)
[2017-11-23] MEDS: METOPROLOL SUCCINATE 25 MG TAB.SR.24H PO SCH (10:28)
[2017-11-23] MEDS: MULTIVITAMIN TABLET PO SCH (10:28)
--- NOTE | 2017-11-23 12:45 | PDOC PROGRESS REPORT ---
Subjective Progress Note for:: 11/23/17 Subjective:: He was seen by the bedside, a complaint of back pain, history of MDS and UTI Reason For Visit: SIRS WITH URINARY TRACT INFECTION; MYELODYSPLASTIC Physical Exam Vital Signs: Temp Pulse Resp BP Pulse Ox 98.3 F 101 H 12 133/57 H 96 11/23/17 07:52 11/23/17 07:52 11/23/17 07:52 11/23/17 07:52 11/23/17 07:52 Intake & Output 11/22/17 11/23/17 11/24/17 06:59 06:59 06:59 Intake Total 1292 1145 Output Total 1750 750 Balance -458 395 Weight 42.2 kg General appearance: PRESENT: no acute distress Eye exam: PRESENT: PERRLA Respiratory exam: PRESENT: clear to auscultation laura Cardiovascular exam: PRESENT: +S1, +S2 GI/Abdominal exam: PRESENT: soft Results Laboratory Results: 11/21/17 05:20 11/21/17 05:20 Impressions: Chest X-Ray 11/19/17 18:20 IMPRESSION: Chronic lung changes with no acute pulmonary disease. Small right pleural effusion is new. Assessment & Plan - Diagnosis (1) Urinary tract infection Qualifiers: Urinary tract infection type: site unspecified Hematuria presence: without hematuria Qualified Code(s): N39.0 - Urinary tract infection, site not specified Is this a current diagnosis for this admission?: Yes (2) Myelodysplastic syndrome Is this a current diagnosis for this admission?: Yes
[2017-11-23] MEDS: MIRTAZAPINE 15 MG TABLET PO SCH (23:09)
[2017-11-23] MEDS: ERTAPENEM SODIUM 0.5 GM in NORMAL SALINE 50 ML IV SCH (23:09)
[2017-11-24] MEDS: METOPROLOL SUCCINATE 25 MG TAB.SR.24H PO SCH (09:32)
[2017-11-24] MEDS: ENALAPRIL MALEATE 10 MG TABLET PO SCH (09:32)
[2017-11-24] MEDS: MULTIVITAMIN TABLET PO SCH (09:33)
[2017-11-24 09:50] LABS: HEMATOCRIT 28.1 % (36.0-47.0); HEMOGLOBIN 9.6 g/dL (12.0-15.5); MEAN CORPUSCULAR HEMOGLOBIN 31.6 pg (27.0-33.4); MEAN CORPUSCULAR HGB CONC 34.1 g/dL (32.0-36.0); RED BLOOD COUNT 3.03 10^6/uL (3.72-5.28); RED CELL DISTRIBUTION WIDTH 15.6 % (11.5-14.0)
[2017-11-24 10:42] LABS: ALANINE AMINOTRANSFERASE 20 U/L (9-52); ALBUMIN 2.6 g/dL (3.5-5.0); ALKALINE PHOSPHATASE 68 U/L (38-126); ANION GAP 9 (5-19); ASPARTATE AMINO TRANSFERASE 16 U/L (14-36); BILIRUBIN,DIRECT 0.4 mg/dL (0.0-0.4); BILIRUBIN,TOTAL 0.4 mg/dL (0.2-1.3); BLOOD UREA NITROGEN 29 mg/dL (7-20); CALCIUM 8.4 mg/dL (8.4-10.2); CARBON DIOXIDE 24 mmol/L (22-30); CHLORIDE 105 mmol/L (98-107); GLUCOSE 139 mg/dL (75-110); MEAN CORPUSCULAR VOLUME 93 fl (80-97); POTASSIUM 4.3 mmol/L (3.6-5.0); SODIUM 137.9 mmol/L (137-145); TOTAL PROTEIN 5.4 g/dL (6.3-8.2)
[2017-11-24 10:54] LABS: ABSOLUTE LYMPHOCYTES# (MANUAL) 0.6 10^3/uL (0.5-4.7); ABSOLUTE MONOCYTES # (MANUAL) 0.1 10^3/uL (0.1-1.4); ABSOLUTE NEUTROPHILS# (MANUAL) 0.6 10^3/uL (1.7-8.2); BASOPHILS % (MANUAL) 0 % (0-2); EOSINOPHILS % (MANUAL) 2 % (0-6); LYMPHOCYTES % (MANUAL) 44 % (13-45); MONOCYTES % (MANUAL) 8 % (3-13); SEGMENTED NEUTROPHILS % (MAN) 46 % (42-78); TOTAL CELLS COUNTED 50
[2017-11-24 10:56] LABS: ANISOCYTOSIS 1+; PLATELET COMMENT DECREASED; TOXIC GRANULATION SLIGHT
[2017-11-24 10:57] LABS: WHITE BLOOD COUNT 1.3 10^3/uL (4.0-10.5)
[2017-11-24 10:58] LABS: PLATELET COUNT 15 10^3/uL (150-450)
--- NOTE | 2017-11-24 18:46 | PDOC PROGRESS REPORT ---
Subjective Progress Note for:: 11/24/17 Subjective:: No chest pain or difficulty with breathing. No fever or chills. No nausea, vomiting or abdominal pain. Remain on IV Invanz coverage. Reason For Visit: SIRS WITH URINARY TRACT INFECTION; MYELODYSPLASTIC Physical Exam Vital Signs: Temp Pulse Resp BP Pulse Ox 97.3 F 90 12 133/51 H 99 11/24/17 16:24 11/24/17 16:24 11/24/17 16:24 11/24/17 16:24 11/24/17 16:24 Intake & Output 11/23/17 11/24/17 11/25/17 06:59 06:59 06:59 Intake Total 1145 720 Output Total 750 850 Balance 395 -130 Weight 41 kg Physical Exam: General appearance: PRESENT: no acute distress, thin Head exam: PRESENT: atraumatic, normocephalic Mouth exam: PRESENT: moist Respiratory exam: PRESENT: clear to auscultation laura Cardiovascular exam: PRESENT: RRR. ABSENT: diastolic murmur, rubs, systolic murmur Vascular exam: ABSENT: pallor GI/Abdominal exam: PRESENT: normal bowel sounds, soft. ABSENT: distended, guarding, mass, organomegaly, rebound, tenderness Extremities exam: ABSENT: pedal edema Musculoskeletal exam: PRESENT: normal inspection Neurological exam: PRESENT: alert, awake, oriented to person, oriented to place , oriented to time, oriented to situation, CN II-XII grossly intact. ABSENT: motor sensory deficit Psychiatric exam: PRESENT: appropriate affect, normal mood. ABSENT: homicidal ideation, suicidal ideation Skin exam: PRESENT: dry, intact, warm. ABSENT: cyanosis, rash Results Laboratory Results: 11/24/17 09:15 11/24/17 09:15 11/24/17 11/24/17 09:15 09:15 WBC 1.3 L* RBC 3.03 L Hgb 9.6 L Hct 28.1 L MCV 93 D MCH 31.6 MCHC 34.1 RDW 15.6 H Plt Count 15 L* Seg Neutrophils % Not Reportable Lymphocytes % Not Reportable Monocytes % Not Reportable Eosinophils % Not Reportable Basophils % Not Reportable Absolute Neutrophils Not Reportable Absolute Lymphocytes Not Reportable Absolute Monocytes Not Reportable Absolute Eosinophils Not Reportable Absolute Basophils Not Reportable Sodium 137.9 Potassium 4.3 Chloride 105 Carbon Dioxide 24 Anion Gap 9 BUN 29 H Creatinine 1.23 Est GFR ( Amer) 50 L Est GFR (Non-Af Amer) 42 L Glucose 139 H Calcium 8.4 Total Bilirubin 0.4 AST 16 ALT 20 Alkaline Phosphatase 68 Total Protein 5.4 L Albumin 2.6 L Impressions: Chest X-Ray 11/19/17 18:20 IMPRESSION: Chronic lung changes with no acute pulmonary disease. Small right pleural effusion is new. Assessment & Plan - Diagnosis (1) SIRS due to Gram-negative infection Is this a current diagnosis for this admission?: Yes Plan: Resolved symptoms. Continue current medication management. (2) UTI (urinary tract infection), bacterial Is this a current diagnosis for this admission?: Yes Plan: Continue current IV Invanz coverage. Day # 5 on IV antibiotic coverage. (3) Myelodysplastic syndrome Is this a current diagnosis for this admission?: Yes Plan: Continue current medication management. (4) Leukocytopenia, unspecified Qualifiers: Leukopenia type: unspecified Qualified Code(s): D72.819 - Decreased white blood cell count, unspecified Is this a current diagnosis for this admission?: Yes Plan: Continue current medication management. Maintain in reverse isolation due to ANC < 1000. (5) Thrombocytopenia Is this a current diagnosis for this admission?: Yes Plan: Continue current medication management. Transfuse 2 bags of Platelet due to count less than 20,000. (6) Anemia Qualifiers: Bone marrow failure anemia type: unspecified bone marrow failure Is this a current diagnosis for this admission?: Yes Plan: Continue current medication management. (7) Diabetes mellitus type 2 in nonobese Is this a current diagnosis for this admission?: Yes Plan: Continue current medication management. (8) Essential (primary) hypertension Is this a current diagnosis for this admission?: Yes Plan: Continue current medication management. (9) HLD (hyperlipidemia) Qualifiers: Hyperlipidemia type: unspecified Qualified Code(s): E78.5 - Hyperlipidemia , unspecified Is this a current diagnosis for this admission?: Yes Plan: Continue current medication management. (10) Senile osteoporosis Is this a current diagnosis for this admission?: Yes Plan: Continue current medication management. (11) Failure to thrive syndrome, adult Is this a current diagnosis for this admission?: Yes Plan: Continue current medication management. (12) Osteoarthritis involving multiple joints on both sides of body Is this a current diagnosis for this admission?: Yes Plan: Continue current medication management. - Time Time Spent with patient: 25-34 minutes Medications reviewed and adjusted accordingly: Yes Anticipated discharge: Home Within: Other - Inpatient Certification Based on my medical assessment, after consideration of the patient's comorbidities, presenting symptoms, or acuity I expect that the services needed warrant INPATIENT care.: Yes I certify that my determination is in accordance with my understanding of Medicare's requirements for reasonable and necessary INPATIENT services [42 CFR 412.3e].: Yes Medical Necessity: Need Close Monitoring Due to Risk of Patient Decompensation, Need For IV Fluids, Need For Continuous Telemetry Monitoring, Need for IV Antibiotics, Risk of Complication if Not Cared For in Hospital 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 Obtain CBC post transfusion.
[2017-11-24] MEDS: ERTAPENEM SODIUM 0.5 GM in NORMAL SALINE 50 ML IV SCH (21:32)
[2017-11-24] MEDS: MIRTAZAPINE 15 MG TABLET PO SCH (21:32)
[2017-11-25] MEDS: ENALAPRIL MALEATE 10 MG TABLET PO SCH (10:29)
[2017-11-25] MEDS: METOPROLOL SUCCINATE 25 MG TAB.SR.24H PO SCH (10:29)
[2017-11-25] MEDS: MULTIVITAMIN TABLET PO SCH (10:30)
--- NOTE | 2017-11-25 19:13 | PDOC PROGRESS REPORT ---
Subjective Progress Note for:: 11/25/17 Subjective:: Patient was transfused 2 bags of platelet since last clinical evaluation by me. She denied any unusual bleeding. No chest pain or difficulty with breathing. No fever or chills. No nausea, vomiting or abdominal pain. Remain on IV Invanz coverage. Reason For Visit: SIRS WITH URINARY TRACT INFECTION; MYELODYSPLASTIC Physical Exam Vital Signs: Temp Pulse Resp BP Pulse Ox 97.8 F 92 20 156/71 H 100 11/25/17 03:15 11/25/17 14:00 11/25/17 03:15 11/25/17 03:15 11/25/17 03:15 Intake & Output 11/24/17 11/25/17 11/26/17 06:59 06:59 06:59 Intake Total 720 1967 5 Output Total 850 1060 Balance -130 907 5 Weight 41 kg 41 kg Physical Exam: General appearance: PRESENT: no acute distress, thin Head exam: PRESENT: atraumatic, normocephalic Mouth exam: PRESENT: moist Respiratory exam: PRESENT: clear to auscultation laura Cardiovascular exam: PRESENT: RRR. ABSENT: diastolic murmur, rubs, systolic murmur Vascular exam: ABSENT: pallor GI/Abdominal exam: PRESENT: normal bowel sounds, soft. ABSENT: distended, guarding, mass, organomegaly, rebound, tenderness Extremities exam: ABSENT: pedal edema Musculoskeletal exam: PRESENT: normal inspection Neurological exam: PRESENT: alert, awake, oriented to person, oriented to place , oriented to time, oriented to situation, CN II-XII grossly intact. ABSENT: motor sensory deficit Psychiatric exam: PRESENT: appropriate affect, normal mood. ABSENT: homicidal ideation, suicidal ideation Skin exam: PRESENT: dry, intact, warm. ABSENT: cyanosis, rash Results Laboratory Results: 11/24/17 09:15 11/24/17 09:15 11/24/17 18:04 Blood Type A NEGATIVE Impressions: Chest X-Ray 11/19/17 18:20 IMPRESSION: Chronic lung changes with no acute pulmonary disease. Small right pleural effusion is new. Assessment & Plan - Diagnosis (1) SIRS due to Gram-negative infection Is this a current diagnosis for this admission?: Yes Plan: Resolved symptoms. Continue current medication management. (2) UTI (urinary tract infection), bacterial Is this a current diagnosis for this admission?: Yes Plan: Continue current IV Invanz coverage. Day # 5 on IV antibiotic coverage. D/C continue after today's dose in view of her no growth status with blood culture x 5 days. (3) Myelodysplastic syndrome Is this a current diagnosis for this admission?: Yes Plan: Continue current medication management. (4) Leukocytopenia, unspecified Qualifiers: Leukopenia type: unspecified Qualified Code(s): D72.819 - Decreased white blood cell count, unspecified Is this a current diagnosis for this admission?: Yes Plan: Continue current medication management. Maintain in reverse isolation due to ANC < 1000. (5) Thrombocytopenia Is this a current diagnosis for this admission?: Yes Plan: Continue current medication management. Transfused 2 bags of Platelet due to count less than 20,000. (6) Anemia Qualifiers: Bone marrow failure anemia type: unspecified bone marrow failure Is this a current diagnosis for this admission?: Yes Plan: Continue current medication management. (7) Diabetes mellitus type 2 in nonobese Is this a current diagnosis for this admission?: Yes Plan: Continue current medication management. (8) Essential (primary) hypertension Is this a current diagnosis for this admission?: Yes Plan: Continue current medication management. (9) HLD (hyperlipidemia) Qualifiers: Hyperlipidemia type: unspecified Qualified Code(s): E78.5 - Hyperlipidemia , unspecified Is this a current diagnosis for this admission?: Yes Plan: Continue current medication management. (10) Senile osteoporosis Is this a current diagnosis for this admission?: Yes Plan: Continue current medication management. (11) Failure to thrive syndrome, adult Is this a current diagnosis for this admission?: Yes Plan: Continue current medication management. (12) Osteoarthritis involving multiple joints on both sides of body Is this a current diagnosis for this admission?: Yes Plan: Continue current medication management. - Time Time Spent with patient: 25-34 minutes Medications reviewed and adjusted accordingly: Yes Anticipated discharge: Home with Homehealth Within: Other - Inpatient Certification Based on my medical assessment, after consideration of the patient's comorbidities, presenting symptoms, or acuity I expect that the services needed warrant INPATIENT care.: Yes I certify that my determination is in accordance with my understanding of Medicare's requirements for reasonable and necessary INPATIENT services [42 CFR 412.3e].: Yes Medical Necessity: Need Close Monitoring Due to Risk of Patient Decompensation, Need For IV Fluids, Need For Continuous Telemetry Monitoring, Need for IV Antibiotics, Risk of Complication if Not Cared For in Hospital Post Hospital Care: D/C Dryerman/Woman Documentation - Plan Summary Plan Summary: See attending physician orders.
[2017-11-25 20:09] LABS: HEMATOCRIT 24.4 % (36.0-47.0); HEMOGLOBIN 8.6 g/dL (12.0-15.5); MEAN CORPUSCULAR HEMOGLOBIN 33.5 pg (27.0-33.4); MEAN CORPUSCULAR HGB CONC 35.2 g/dL (32.0-36.0); MEAN CORPUSCULAR VOLUME 95 fl (80-97); RED BLOOD COUNT 2.56 10^6/uL (3.72-5.28); RED CELL DISTRIBUTION WIDTH 15.2 % (11.5-14.0)
[2017-11-25 20:36] LABS: PLATELET COUNT 84 10^3/uL (150-450)
[2017-11-25 20:54] LABS: ABSOLUTE LYMPHOCYTES# (MANUAL) 0.8 10^3/uL (0.5-4.7); ABSOLUTE MONOCYTES # (MANUAL) 0.2 10^3/uL (0.1-1.4); ABSOLUTE NEUTROPHILS# (MANUAL) 0.6 10^3/uL (1.7-8.2); BASOPHILS % (MANUAL) 0 % (0-2); EOSINOPHILS % (MANUAL) 0 % (0-6); LYMPHOCYTES % (MANUAL) 48 % (13-45); MONOCYTES % (MANUAL) 14 % (3-13); SEGMENTED NEUTROPHILS % (MAN) 38 % (42-78); TOTAL CELLS COUNTED 50
[2017-11-25 21:01] LABS: OVALOCYTES SLIGHT; PLATELET COMMENT DECREASED; POIKILOCYTOSIS SLIGHT
[2017-11-25 21:03] LABS: WHITE BLOOD COUNT 1.7 10^3/uL (4.0-10.5)
[2017-11-25] MEDS: MIRTAZAPINE 15 MG TABLET PO SCH (21:06)
[2017-11-25] MEDS: ERTAPENEM SODIUM 0.5 GM in NORMAL SALINE 50 ML IV SCH (21:11)
--- NOTE | 2017-11-26 06:59 | PDOC DISCHARGE SUMMARY ---
General - Admit/Disc Date/PCP Admission Date/Primary Care Provider: 11/20/17 01:07 DORIS ELLIS Discharge Date: 11/26/17 - Discharge Diagnosis (1) SIRS due to Gram-negative infection Is this a current diagnosis for this admission?: Yes (2) UTI (urinary tract infection), bacterial Is this a current diagnosis for this admission?: Yes (3) Myelodysplastic syndrome Is this a current diagnosis for this admission?: Yes (4) Leukocytopenia, unspecified Is this a current diagnosis for this admission?: Yes (5) Thrombocytopenia Is this a current diagnosis for this admission?: Yes (6) Anemia Is this a current diagnosis for this admission?: Yes (7) Diabetes mellitus type 2 in nonobese Is this a current diagnosis for this admission?: Yes (8) Essential (primary) hypertension Is this a current diagnosis for this admission?: Yes (9) HLD (hyperlipidemia) Is this a current diagnosis for this admission?: Yes (10) Senile osteoporosis Is this a current diagnosis for this admission?: Yes (11) Failure to thrive syndrome, adult Is this a current diagnosis for this admission?: Yes (12) Osteoarthritis involving multiple joints on both sides of body Is this a current diagnosis for this admission?: Yes - Additional Information Resuscitation Status: Full Code Home Medications: Fosinopril Sodium [Monopril] 30 mg PO DAILY 07/08/17 Metoprolol Succinate [Toprol Xl 25 mg Tab.sr] 25 mg PO DAILY 07/08/17 Mirtazapine [Remeron] 30 mg PO QHS 07/08/17 Loratadine [Claritin] 10 mg PO DAILYP PRN 10/06/17 Multivit-Min/Iron/Folic/Lutein [Centrum Silver Women Tablet] 1 each PO DAILY Vit C/Vit E/Lutein/Min/[place]-3 [Ocuvite Softgel] 1 each PO DAILY 10/06/17 Ondansetron HCl [Zofran 4 mg Tablet] 4 mg PO Q8HP PRN 11/20/17 Risedronate Sodium [Actonel 150 mg Tablet] 150 mg PO [id number] 11/20/17 Tramadol HCl [Ultram 50 mg Tablet] 50 mg PO DAILYP PRN 11/20/17 History of Present Illness History of Present Illness: VIJI VARAGS is a 82 year old female known to my practice who presented to the ED with complain of new onset worsening shortness of breath. Patient daughter reported associated fever at home prior to presenting to the ED. She denied coughing , chest pain, nausea or vomiting. No abdominal pain. She denied any nasal or sinus congestion. She denied abdominal pain or diarrhea. She has history of myelodysplastic syndrome with anemia, thrombocytopenia and leukopenia. Her initial evaluation in the ED was significant for documented elevated temperature, tachycardia, tachypnea, abnormal urinalysis, and abnormal CBC indices including anemia, thrombocytopenia and leukopenia. She was advised hospitalization for further evaluation and management. 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 Hospital Course Hospital Course: Patient was admitted with SIRS features and possible UTI. Her urine culture eventually grew Klebsella pneumoniae sensitive to Invanz. She completed 5 days of IV antibiotic therapy. She was transfused 2 bags of Platelet during this hospitalization due to worsening thrombocytopenia related to her myelodysplastic syndrome. She remain afebrile. Her SIRS features totally resolved. She will be discharge home today and follow up in the office as instructed upon discharge. She will follow up with Dr Valle her hematology/ oncologist as schedule. Physical Exam Vital Signs: Temp Pulse Resp BP Pulse Ox 97.5 F 82 23 H 133/60 H 98 11/26/17 04:03 11/26/17 04:03 11/26/17 04:03 11/26/17 04:03 11/26/17 04:03 Intake & Output 11/24/17 11/25/17 11/26/17 06:59 06:59 06:59 Intake Total 720 1967 265 Output Total 850 1060 Balance -130 907 265 Weight 41 kg 41 kg Physical Exam: General appearance: PRESENT: no acute distress, thin Head exam: PRESENT: atraumatic, normocephalic Mouth exam: PRESENT: moist Respiratory exam: PRESENT: clear to auscultation laura Cardiovascular exam: PRESENT: RRR. ABSENT: diastolic murmur, rubs, systolic murmur Vascular exam: ABSENT: pallor GI/Abdominal exam: PRESENT: normal bowel sounds, soft. ABSENT: distended, guarding, mass, organomegaly, rebound, tenderness Extremities exam: ABSENT: pedal edema Musculoskeletal exam: PRESENT: normal inspection Neurological exam: PRESENT: alert, awake, oriented to person, oriented to place , oriented to time, oriented to situation, CN II-XII grossly intact. ABSENT: motor sensory deficit Psychiatric exam: PRESENT: appropriate affect, normal mood. ABSENT: homicidal ideation, suicidal ideation Skin exam: PRESENT: dry, intact, warm. ABSENT: cyanosis, rash Results Laboratory Results: 11/25/17 19:47 11/24/17 09:15 11/25/17 19:47 WBC 1.7 L RBC 2.56 L Hgb 8.6 L Hct 24.4 L MCV 95 MCH 33.5 H MCHC 35.2 RDW 15.2 H Plt Count 84 L D Seg Neutrophils % Not Reportable Lymphocytes % Not Reportable Monocytes % Not Reportable Eosinophils % Not Reportable Basophils % Not Reportable Absolute Neutrophils Not Reportable Absolute Lymphocytes Not Reportable Absolute Monocytes Not Reportable Absolute Eosinophils Not Reportable Absolute Basophils Not Reportable Impressions: Chest X-Ray 11/19/17 18:20 IMPRESSION: Chronic lung changes with no acute pulmonary disease. Small right pleural effusion is new. Qualifiers - * PATIENT BEING DISCHARGED WITH ANY OF THE FOLLOWING DIAGNOSIS: No Plan Discharge Plan: D/C home and follow up with me in the office as instructed upon discharge.
[2017-11-26 08:53] VITALS: BP 146/59
[2017-11-26] MEDS: MULTIVITAMIN TABLET PO SCH (09:58)
[2017-11-26] MEDS: ENALAPRIL MALEATE 10 MG TABLET PO SCH (09:58)
[2017-11-26] MEDS: METOPROLOL SUCCINATE 25 MG TAB.SR.24H PO SCH (09:59)
== END 2017-11-26 10:20 | disposition home or self-care (01) | DRG 690 ==
LOC: ER 17:03 → EH 11-20 01:07 → 4W 11-20 14:53 → 4S 11-20 16:38
PROVIDERS: ADMIT Internal Medicine Geriatric Medicine; ATTEND Internal Medicine Geriatric Medicine
PROC: 30233R1 Transfusion of Nonautologous Platelets into Peripheral Vein, Percutaneous Approach (ICD-10-PCS; principal; 2017-11-24)
DX: N39.0 Urinary tract infection, site not specified (principal); Z68.1 Body mass index [BMI] 19.9 or less, adult; D69.6 Thrombocytopenia, unspecified; R62.7 Adult failure to thrive; E11.9 Type 2 diabetes mellitus without complications; I10 Essential (primary) hypertension; D46.9 Myelodysplastic syndrome, unspecified; E78.5 Hyperlipidemia, unspecified; B96.1 Klebsiella pneumoniae [K. pneumoniae] as the cause of diseases classified elsewhere; M81.0 Age-related osteoporosis without current pathological fracture; Z87.891 Personal history of nicotine dependence
CPT/HCPCS: 36415; 36430; 51701; 71045; 80053; 81001; 82550; 82553; 82803; 82962; 83605; 83690; 84484; 85025; 85610; 86850; 86900; 86901; 87040; 87086; 87088; 87186; 93005; 93010; 96361; 96365; 99285; J1335; J1815; J3490; J7030; P9035

== ENCOUNTER 2017-12-03 12:51 | Inpatient (IN) | payer MEDICARE, BC ==
[2017-12-03 14:54] LABS: HEMATOCRIT 19.8 % (36.0-47.0); MEAN CORPUSCULAR HEMOGLOBIN 32.8 pg (27.0-33.4); MEAN CORPUSCULAR HGB CONC 34.9 g/dL (32.0-36.0); MEAN CORPUSCULAR VOLUME 94 fl (80-97); RED BLOOD COUNT 2.11 10^6/uL (3.72-5.28); RED CELL DISTRIBUTION WIDTH 15.5 % (11.5-14.0); WHITE BLOOD COUNT 1.7 10^3/uL (4.0-10.5)
[2017-12-03] MEDS ORDERED: LEVALBUTEROL HCL NEB 1.25 MG/3 ML AMPUL NEB PRN (14:55)
[2017-12-03 15:11] LABS: ALANINE AMINOTRANSFERASE 24 U/L (9-52); ALBUMIN 3.2 g/dL (3.5-5.0); ALKALINE PHOSPHATASE 75 U/L (38-126); ANION GAP 12 (5-19); ASPARTATE AMINO TRANSFERASE 20 U/L (14-36); BILIRUBIN,DIRECT 0.5 mg/dL (0.0-0.4); BILIRUBIN,TOTAL 0.9 mg/dL (0.2-1.3); BLOOD UREA NITROGEN 64 mg/dL (7-20); CALCIUM 7.6 mg/dL (8.4-10.2); CARBON DIOXIDE 24 mmol/L (22-30); CHLORIDE 99 mmol/L (98-107); GLUCOSE 240 mg/dL (75-110); TOTAL PROTEIN 6.4 g/dL (6.3-8.2)
[2017-12-03 15:21] LABS: ABSOLUTE MONOCYTES # (MANUAL) 0.3 10^3/uL (0.1-1.4); ABSOLUTE NEUTROPHILS# (MANUAL) 0.5 10^3/uL (1.7-8.2); BASOPHILS % (MANUAL) 0 % (0-2); EOSINOPHILS % (MANUAL) 1 % (0-6); LYMPHOCYTES % (MANUAL) 56 % (13-45); MONOCYTES % (MANUAL) 16 % (3-13); SEGMENTED NEUTROPHILS % (MAN) 27 % (42-78); TOTAL CELLS COUNTED 100
[2017-12-03 15:22] LABS: ANISOCYTOSIS SLIGHT; PLATELET COMMENT DECREASED; TOXIC GRANULATION SLIGHT
[2017-12-03 15:27] LABS: HEMOGLOBIN 6.9 g/dL (12.0-15.5); PLATELET COUNT 14 10^3/uL (150-450)
[2017-12-03] MEDS ORDERED: (PENDING PHARMACY ID) (Ondansetron Hcl [Zofran 4 Mg Tablet] 4 MG) PO PRN (15:58)
[2017-12-03] MEDS ORDERED: LORATADINE 10 MG TABLET PO PRN (15:58)
[2017-12-03] MEDS ORDERED: TRAMADOL HCL 50 MG TABLET PO PRN (15:58)
[2017-12-03] MEDS ORDERED: RISEDRONATE SODIUM 150 MG PO SCH (16:00)
[2017-12-03] MEDS ORDERED: METOPROLOL SUCCINATE 25 MG TAB.SR.24H PO ONE (16:00)
[2017-12-03] MEDS: CEFEPIME 1 GM/D5W RTU 1 GM/50 ML RTUPB IV SCH (16:35)
[2017-12-03] MEDS ORDERED: ONDANSETRON 4 MG TAB.RAPDIS PO PRN (16:45)
--- NOTE | 2017-12-03 17:00 | RADIOLOGY REPORT (SQ) ---
EXAM DESCRIPTION: CHEST 2 VIEWS COMPLETED DATE/TIME: 12/03/2017 4:25 pm REASON FOR STUDY: HYPOXEMIA COMPARISON: Chest films 11/19/2017, 10/18/2017, 09/10/2017 EXAM PARAMETERS: NUMBER OF VIEWS: two views TECHNIQUE: Digital Frontal and Lateral radiographic views of the chest acquired. RADIATION DOSE: NA LIMITATIONS: none FINDINGS: LUNGS AND PLEURA: Lung hyperinflation and hyperlucency from obstructive disease. There is trace right pleural fluid in the lateral costophrenic sulcus. Few Constantino lines at both base s. This could indicate mild fluid overload or congestive failure superimposed on obstructive lung di sease. No pneumothorax MEDIASTINUM AND HILAR STRUCTURES: No masses or contour abnormalities. HEART AND VASCULAR STRUCTURES: No cardiomegaly BONES: Bones are osteoporotic. Old healed left and right lateral rib fractures HARDWARE: None in the chest. OTHER: No other significant finding. IMPRESSION: Obstructive lung disease. Few Constantino lines are present with trace right pleural fluid, question fluid overload versus congestiv e failure superimposed on obstructive lung disease. TECHNICAL DOCUMENTATION: JOB ID: [id number] [employer]- All Rights Reserved Reading location - IP/workstation name: [email or web address]
[2017-12-03] MEDS ORDERED: LEVOFLOXACIN 500 MG/D5W RTU 500 MG/100 ML RTUPB IV ONE (18:00)
--- NOTE | 2017-12-03 20:15 | PDOC H&P ---
History of Present Illness Admission Date/PCP: 12/03/17 12:51 DORIS RHONDA Patient complains of: Generalized weakness, coughing, Fever, Tachypnea, Tachycardia History of Present Illness: VIJI VARGAS is a 82 year old female known to my practice who presented to the office for post hospitalization follow up and reported worsening generalized weakness, coughing without significant expectoration but sound congested in her chest as per daughter who was present in the office with the patient. Patient's daughter reported episode of fever with temperature about 102F earlier yesterday. Patient reported associated wheezing, and feeling sick in her stomach. She denied definite chest pain but reported episodes of her heart beating very fast and pounding in her chest. She expressed weakness to the point that she had to be lifted from the floor into wheelchair when she was leaving the office. She was advised hospitalization for further evaluation and management on observation telemetry bed. Her morbidities include hypertension, Diabetes mellitus type 2, Hypercholesterolemia, Myelodysplastic syndrome with pancytopenia, senile osteoporosis, macular degeneration, and adult type failure to thrive . Past Medical History Cardiac Medical History: Reports: Hypertension - LISINOPRIL, AMLODIPINE Denies: Myocardial Infarction Pulmonary Medical History: Denies: Asthma Neurological Medical History: Denies: Seizures Endocrine Medical History: Reports: Diabetes Mellitus Type 2 GI Medical History: Denies: Hepatitis, Hiatal Hernia Hematology: Reports: Anemia, Bleeding Tendencies, Neutropenia Denies: Sickle Cell Disease Past Surgical History Past Surgical History: Denies: Amputation, Hysterectomy, Mastectomy, Pacemaker Social History Smoking Status: Former Smoker Frequency of Alcohol Use: None Hx Recreational Drug Use: No Drugs: None Hx Prescription Drug Abuse: No Family History Family History: None Parental Family History Reviewed: Yes Children Family History Reviewed: Yes Sibling(s) Family History Reviewed.: Yes Medication/Allergy Home Medications: Fosinopril Sodium [Monopril] 30 mg PO DAILY 07/08/17 Metoprolol Succinate [Toprol Xl 25 mg Tab.sr] 25 mg PO DAILY 07/08/17 Mirtazapine [Remeron] 30 mg PO QHS 07/08/17 Loratadine [Claritin] 10 mg PO DAILYP PRN 10/06/17 Multivit-Min/Iron/Folic/Lutein [Centrum Silver Women Tablet] 1 each PO DAILY Vit C/Vit E/Lutein/Min/[place]-3 [Ocuvite Softgel] 1 each PO DAILY 10/06/17 Ondansetron HCl [Zofran 4 mg Tablet] 4 mg PO Q8HP PRN 11/20/17 Risedronate Sodium [Actonel 150 mg Tablet] 150 mg PO [id number] 11/20/17 Tramadol HCl [Ultram 50 mg Tablet] 50 mg PO DAILYP PRN 11/20/17 Calcium Carbonate [Calcium] 500 mg PO DAILY 12/03/17 Allergies/Adverse Reactions: codeine [Codeine] Adverse Reaction (Mild, Verified 12/03/17 15:38) Nausea Review of Systems Constitutional: PRESENT: fatigue, fever(s), weakness. ABSENT: as per HPI, anorexia, chills, headache(s), night sweats, weight gain, weight loss, other Eyes: ABSENT: visual disturbances Ears: ABSENT: hearing changes Nose, Mouth, and Throat: ABSENT: headache(s), mouth pain, sore throat, vertigo Cardiovascular: PRESENT: dyspnea on exertion, palpitations. ABSENT: chest pain , edema, orthropnea Respiratory: PRESENT: cough, dyspnea. ABSENT: hemoptysis, sputum Gastrointestinal: ABSENT: abdominal pain, constipation, diarrhea, hematemesis, hematochezia, nausea, vomiting Genitourinary: ABSENT: difficulty urinating, dysuria, hematuria Musculoskeletal: ABSENT: joint swelling Integumentary: ABSENT: diaphoresis, rash, wounds Neurological: ABSENT: abnormal gait, abnormal speech, confusion, dizziness, focal weakness, syncope Psychiatric: ABSENT: anxiety, depression, homidical ideation, suicidal ideation Endocrine: ABSENT: cold intolerance, heat intolerance, polydipsia, polyuria Hematologic/Lymphatic: ABSENT: easy bleeding, easy bruising, lymphadenopathy Allergic/Immunologic: ABSENT: seasonal rhinorrhea Physical Exam Vital Signs: Temp Pulse Resp BP Pulse Ox 101.0 F H 129 H 26 H 143/45 H 95 12/03/17 16:51 12/03/17 17:15 12/03/17 17:15 12/03/17 16:51 12/03/17 17:15 Intake & Output 12/02/17 12/03/17 12/04/17 06:59 06:59 06:59 Intake Total 0 Balance 0 Weight 39.463 kg General appearance: PRESENT: mild distress - respiratory due to wheezing, thin Head exam: PRESENT: atraumatic, normocephalic Eye exam: PRESENT: conjunctiva pink, EOMI, PERRLA. ABSENT: scleral icterus Ear exam: PRESENT: normal external ear exam Mouth exam: PRESENT: moist, tongue midline Respiratory exam: PRESENT: decreased breath sounds - at lung bases, rhonchi, tachypnea, wheezes Cardiovascular exam: PRESENT: +S1, +S2, tachycardia Vascular exam: PRESENT: normal capillary refill, pallor GI/Abdominal exam: PRESENT: normal bowel sounds, soft. ABSENT: distended, guarding, mass, organolmegaly, rebound, tenderness Rectal exam: PRESENT: deferred Extremities exam: ABSENT: pedal edema Musculoskeletal exam: PRESENT: deformity - due to arthritis Neurological exam: PRESENT: alert, awake, oriented to person, oriented to place , oriented to time, oriented to situation, CN II-XII grossly intact. ABSENT: motor sensory deficit Psychiatric exam: PRESENT: appropriate affect, normal mood. ABSENT: homicidal ideation, suicidal ideation Skin exam: PRESENT: dry, intact, warm. ABSENT: cyanosis, rash Results Laboratory Results: 12/03/17 14:25 12/03/17 14:25 12/03/17 12/03/17 14:25 14:25 WBC 1.7 L RBC 2.11 L Hgb 6.9 L Hct 19.8 L MCV 94 MCH 32.8 MCHC 34.9 RDW 15.5 H Plt Count 14 L* Seg Neutrophils % Not Reportable Lymphocytes % Not Reportable Monocytes % Not Reportable Eosinophils % Not Reportable Basophils % Not Reportable Absolute Neutrophils Not Reportable Absolute Lymphocytes Not Reportable Absolute Monocytes Not Reportable Absolute Eosinophils Not Reportable Absolute Basophils Not Reportable Sodium 135.0 L Potassium 5.0 Chloride 99 Carbon Dioxide 24 Anion Gap 12 BUN 64 H Creatinine 1.48 H Est GFR ( Amer) 41 L Est GFR (Non-Af Amer) 34 L Glucose 240 H Calcium 7.6 L Total Bilirubin 0.9 AST 20 ALT 24 Alkaline Phosphatase 75 Total Protein 6.4 Albumin 3.2 L Impressions: Chest X-Ray 12/03/17 00:00 IMPRESSION: Obstructive lung disease. Few Constantino lines are present with trace right pleural fluid, question fluid overload versus congestive failure superimposed on obstructive lung disease. Assessment & Plan - Diagnosis (1) SIRS due to Gram-negative infection Is this a current diagnosis for this admission?: Yes Plan: See admitting attending orders. (2) COPD exacerbation Is this a current diagnosis for this admission?: Yes Plan: See admitting attending orders. (3) Myelodysplastic syndrome Is this a current diagnosis for this admission?: Yes Plan: See admitting attending orders. (4) Symptomatic anemia Is this a current diagnosis for this admission?: Yes Plan: See admitting attending orders. (5) Leukocytopenia, unspecified Qualifiers: Leukopenia type: unspecified Qualified Code(s): D72.819 - Decreased white blood cell count, unspecified Is this a current diagnosis for this admission?: Yes Plan: See admitting attending orders. (6) Thrombocytopenia Is this a current diagnosis for this admission?: Yes Plan: See admitting attending orders. (7) Diabetes mellitus type 2 in nonobese Is this a current diagnosis for this admission?: Yes Plan: See admitting attending orders. (8) Essential (primary) hypertension Is this a current diagnosis for this admission?: Yes Plan: See admitting attending orders. (9) HLD (hyperlipidemia) Qualifiers: Hyperlipidemia type: unspecified Qualified Code(s): E78.5 - Hyperlipidemia , unspecified Is this a current diagnosis for this admission?: Yes (10) Failure to thrive syndrome, adult Is this a current diagnosis for this admission?: Yes Plan: See admitting attending orders. (11) Senile osteoporosis Is this a current diagnosis for this admission?: Yes Plan: See admitting attending orders. - Time Time Spent: 50 to 70 Minutes Medications reviewed and adjusted accordingly: Yes Anticipated discharge: Home with Homehealth Within: Other - Inpatient Certification Based on my medical assessment, after consideration of the patient's comorbidities, presenting symptoms, or acuity I expect that the services needed warrant INPATIENT care.: Yes I certify that my determination is in accordance with my understanding of Medicare's requirements for reasonable and necessary INPATIENT services [42 CFR 412.3e].: Yes Medical Necessity: Need Close Monitoring Due to Risk of Patient Decompensation, Need For IV Fluids, Need For Continuous Telemetry Monitoring, Need for Nebulizer Therapy and Monitoring of Response, Need for IV Antibiotics, Risk of Complication if Not Cared For in Hospital Post Hospital Care: D/C Refrigerator Car Icer Documentation - Plan Summary Plan Summary: See admitting attending orders.
[2017-12-03] MEDS: NORMAL SALINE 1000 ML 1,000 ML IV PRN (21:41)
[2017-12-03] MEDS: MIRTAZAPINE 15 MG TABLET PO SCH (23:35)
[2017-12-04] MEDS: LANSOPRAZOLE 30 MG TAB.RAP.DR PO SCH (05:01)
[2017-12-04 05:05] LABS: APPEARANCE,URINE CLEAR; BILIRUBIN,URINE NEGATIVE (NEGATIVE); COLOR,URINE YELLOW; GLUCOSE, URINE NEGATIVE (NEGATIVE); KETONES,URINE NEGATIVE (NEGATIVE); LEUKOCYTE ESTERASE,URINE NEGATIVE (NEGATIVE); NITRITE,URINE NEGATIVE (NEGATIVE); PROTEIN,URINE 100 mg/dL (NEGATIVE); URINE SPECIFIC GRAVITY 1.014; UROBILINOGEN,URINE NEGATIVE mg/dL (<2.0)
[2017-12-04] MEDS: CALCIUM CARBONATE 500 MG TABLET PO SCH (09:50)
[2017-12-04] MEDS: ENALAPRIL MALEATE 10 MG TABLET PO SCH (09:51)
[2017-12-04] MEDS: METOPROLOL SUCCINATE 25 MG TAB.SR.24H PO SCH (09:52)
[2017-12-04] MEDS: MULTIVITAMIN TABLET PO SCH (09:52)
[2017-12-04] MEDS ORDERED: FOSINOPRIL SODIUM PO SCH (10:00)
[2017-12-04] MEDS ORDERED: (PENDING PHARMACY ID) (Multivit-Min/Iron/Folic/Lutein [Centrum Silver Women Tablet] 1 EACH PO SCH (10:00)
[2017-12-04] MEDS ORDERED: (PENDING PHARMACY ID) (Vit C/Vit E/Lutein/Min/Omega-3 [Ocuvite Softgel] 1 EACH) PO SCH (10:00)
[2017-12-04 10:51] LABS: HEMOGLOBIN 8.8 g/dL (12.0-15.5); MEAN CORPUSCULAR HEMOGLOBIN 32.3 pg (27.0-33.4); MEAN CORPUSCULAR HGB CONC 35.1 g/dL (32.0-36.0); MEAN CORPUSCULAR VOLUME 92 fl (80-97); RED BLOOD COUNT 2.72 10^6/uL (3.72-5.28); WHITE BLOOD COUNT 1.6 10^3/uL (4.0-10.5)
[2017-12-04 11:16] LABS: ALANINE AMINOTRANSFERASE 25 U/L (9-52); ALBUMIN 2.4 g/dL (3.5-5.0); ALKALINE PHOSPHATASE 50 U/L (38-126); ANION GAP 10 (5-19); ASPARTATE AMINO TRANSFERASE 20 U/L (14-36); BILIRUBIN,DIRECT 0.8 mg/dL (0.0-0.4); BILIRUBIN,TOTAL 1.7 mg/dL (0.2-1.3); BLOOD UREA NITROGEN 52 mg/dL (7-20); CARBON DIOXIDE 27 mmol/L (22-30); CHLORIDE 102 mmol/L (98-107); GLUCOSE 211 mg/dL (75-110); POTASSIUM 4.3 mmol/L (3.6-5.0); SODIUM 139.2 mmol/L (137-145); TOTAL PROTEIN 5.4 g/dL (6.3-8.2)
[2017-12-04 11:30] LABS: CALCIUM 6.7 mg/dL (8.4-10.2)
[2017-12-04 11:46] LABS: PLATELET COUNT 75 10^3/uL (150-450)
[2017-12-04 11:53] LABS: ABSOLUTE MONOCYTES # (MANUAL) 0.1 10^3/uL (0.1-1.4); ABSOLUTE NEUTROPHILS# (MANUAL) 0.5 10^3/uL (1.7-8.2); BAND NEUTROPHILS % (MANUAL) 2 % (3-5); BASOPHILS % (MANUAL) 0 % (0-2); EOSINOPHILS % (MANUAL) 2 % (0-6); LYMPHOCYTES % (MANUAL) 54 % (13-45); MONOCYTES % (MANUAL) 6 % (3-13); NUCLEATED RED BLOOD CELLS 8 /100 WBC (0); SEGMENTED NEUTROPHILS % (MAN) 28 % (42-78); TOTAL CELLS COUNTED 50
[2017-12-04 11:56] LABS: ANISOCYTOSIS SLIGHT; BURR CELLS SLIGHT; OVALOCYTES 1+; PLATELET COMMENT DECREASED; POIKILOCYTOSIS 1+; TEAR DROP CELLS SLIGHT; TOXIC GRANULATION 2+
[2017-12-04] MEDS: CEFEPIME 1 GM/D5W RTU 1 GM/50 ML RTUPB IV SCH (15:09)
[2017-12-04] MEDS: NORMAL SALINE 1000 ML 1,000 ML IV PRN (20:06)
[2017-12-04] MEDS: MIRTAZAPINE 15 MG TABLET PO SCH (21:00)
[2017-12-05] MEDS: LANSOPRAZOLE 30 MG TAB.RAP.DR PO SCH (05:10)
--- NOTE | 2017-12-05 09:52 | PDOC PROGRESS REPORT ---
Subjective Progress Note for:: 12/04/17 Subjective:: Patient reported sorethroat and self diagnosed laryngitis! No difficulty with swallowing. No fever or chills. No chest pain or difficulty with breathing. Remain on supplemental oxygen via nasal cannula. Reason For Visit: SIRS WITH GRAM NEGATIVE ORGANISM;EXACERBATED COPD, Physical Exam Vital Signs: Temp Pulse Resp BP Pulse Ox 99.6 F 98 16 141/61 H 98 12/04/17 07:10 12/04/17 09:23 12/04/17 09:23 12/04/17 07:10 12/04/17 09:23 Intake & Output 12/03/17 12/04/17 12/05/17 06:59 06:59 06:59 Intake Total 1445 1150 Output Total 300 Balance 1145 1150 Weight 40.3 kg General appearance: PRESENT: no acute distress, thin Head exam: PRESENT: atraumatic, normocephalic Eye exam: PRESENT: conjunctiva pink, EOMI, PERRLA. ABSENT: scleral icterus Mouth exam: PRESENT: moist Throat exam: ABSENT: post pharyngeal erythema Respiratory exam: PRESENT: crackles - scattered bilaterally, decreased breath sounds - at lung bases Cardiovascular exam: PRESENT: RRR. ABSENT: diastolic murmur, rubs, systolic murmur Vascular exam: PRESENT: normal capillary refill, pallor GI/Abdominal exam: PRESENT: normal bowel sounds, soft. ABSENT: distended, guarding, mass, organolmegaly, rebound, tenderness Extremities exam: ABSENT: pedal edema Musculoskeletal exam: PRESENT: normal inspection Neurological exam: PRESENT: alert, awake, oriented to person, oriented to place , oriented to time, oriented to situation, CN II-XII grossly intact. ABSENT: motor sensory deficit Psychiatric exam: PRESENT: appropriate affect, normal mood. ABSENT: homicidal ideation, suicidal ideation Skin exam: PRESENT: dry, intact, warm. ABSENT: cyanosis, rash Results Laboratory Results: 12/04/17 10:40 12/04/17 10:40 12/03/17 12/04/17 12/04/17 16:42 04:45 10:40 WBC 1.6 L RBC 2.72 L Hgb 8.8 L Hct 25.0 L MCV 92 MCH 32.3 MCHC 35.1 RDW 15.0 H Plt Count 75 L D Seg Neutrophils % Not Reportable Lymphocytes % Not Reportable Monocytes % Not Reportable Eosinophils % Not Reportable Basophils % Not Reportable Absolute Neutrophils Not Reportable Absolute Lymphocytes Not Reportable Absolute Monocytes Not Reportable Absolute Eosinophils Not Reportable Absolute Basophils Not Reportable Sodium Potassium Chloride Carbon Dioxide Anion Gap BUN Creatinine Est GFR ( Amer) Est GFR (Non-Af Amer) Glucose Calcium Total Bilirubin AST ALT Alkaline Phosphatase Total Protein Albumin Urine Color YELLOW Urine Appearance CLEAR Urine pH 6.0 Ur Specific [place] 1.014 Urine Protein 100 H Urine Glucose (UA) NEGATIVE Urine Ketones NEGATIVE Urine Blood MODERATE H Urine Nitrite NEGATIVE Ur Leukocyte Esterase NEGATIVE Urine WBC (Auto) 1 Blood Type A NEGATIVE Antibody Screen NEGATIVE 12/04/17 10:40 WBC RBC Hgb Hct MCV MCH MCHC RDW Plt Count Seg Neutrophils % Lymphocytes % Monocytes % Eosinophils % Basophils % Absolute Neutrophils Absolute Lymphocytes Absolute Monocytes Absolute Eosinophils Absolute Basophils Sodium 139.2 Potassium 4.3 Chloride 102 Carbon Dioxide 27 Anion Gap 10 BUN 52 H Creatinine 1.42 H Est GFR ( Amer) 43 L Est GFR (Non-Af Amer) 35 L Glucose 211 H Calcium 6.7 L* Total Bilirubin 1.7 H AST 20 ALT 25 Alkaline Phosphatase 50 Total Protein 5.4 L Albumin 2.4 L Urine Color Urine Appearance Urine pH Ur Specific [place] Urine Protein Urine Glucose (UA) Urine Ketones Urine Blood Urine Nitrite Ur Leukocyte Esterase Urine WBC (Auto) Blood Type Antibody Screen Impressions: Chest X-Ray 12/03/17 00:00 IMPRESSION: Obstructive lung disease. Few [place] lines are present with trace right pleural fluid, question fluid overload versus congestive failure superimposed on obstructive lung disease. Assessment & Plan - Diagnosis (1) SIRS due to Gram-negative infection Is this a current diagnosis for this admission?: Yes (2) COPD exacerbation Is this a current diagnosis for this admission?: Yes (3) Myelodysplastic syndrome Is this a current diagnosis for this admission?: Yes (4) Symptomatic anemia Is this a current diagnosis for this admission?: Yes (5) Leukocytopenia, unspecified Qualifiers: Leukopenia type: unspecified Qualified Code(s): D72.819 - Decreased white blood cell count, unspecified Is this a current diagnosis for this admission?: Yes (6) Thrombocytopenia Is this a current diagnosis for this admission?: Yes (7) Diabetes mellitus type 2 in nonobese Is this a current diagnosis for this admission?: Yes (8) Essential (primary) hypertension Is this a current diagnosis for this admission?: Yes (9) HLD (hyperlipidemia) Qualifiers: Hyperlipidemia type: unspecified Qualified Code(s): E78.5 - Hyperlipidemia , unspecified Is this a current diagnosis for this admission?: Yes (10) Failure to thrive syndrome, adult Is this a current diagnosis for this admission?: Yes (11) Senile osteoporosis Is this a current diagnosis for this admission?: Yes - Time Time Spent with patient: 25-34 minutes Medications reviewed and adjusted accordingly: Yes Anticipated discharge: Home with Homehealth - Inpatient Certification Based on my medical assessment, after consideration of the patient's comorbidities, presenting symptoms, or acuity I expect that the services needed warrant INPATIENT care.: Yes I certify that my determination is in accordance with my understanding of Medicare's requirements for reasonable and necessary INPATIENT services [42 CFR 412.3e].: Yes Medical Necessity: Need Close Monitoring Due to Risk of Patient Decompensation, Need For IV Fluids, Need For Continuous Telemetry Monitoring, Need for Nebulizer Therapy and Monitoring of Response, Need for IV Antibiotics, Risk of Complication if Not Cared For in Hospital Post Hospital Care: D/C Diploma Dental Assistant Documentation - Plan Summary Plan Summary: See attending physician orders.
[2017-12-05] MEDS: CALCIUM CARBONATE 500 MG TABLET PO SCH (10:13)
[2017-12-05] MEDS: LEVOFLOXACIN 250 MG/D5W RTU 250 MG/50 ML RTUPB IV SCH (10:13)
[2017-12-05] MEDS: MULTIVITAMIN TABLET PO SCH (10:13)
[2017-12-05] MEDS: METOPROLOL SUCCINATE 25 MG TAB.SR.24H PO SCH (10:13)
[2017-12-05] MEDS: ENALAPRIL MALEATE 10 MG TABLET PO SCH (10:13)
--- NOTE | 2017-12-05 14:35 | PDOC PROGRESS REPORT ---
Subjective Progress Note for:: 12/05/17 Subjective:: Patient denied fever or chills. No chest pain or difficulty with breathing. Remain on supplemental oxygen via nasal cannula. No abdominal pain, nausea or vomiting. Remain on IV antibiotic therapy. Blood culture is no growth to date. Reason For Visit: SIRS WITH GRAM NEGATIVE ORGANISM;EXACERBATED COPD, Physical Exam Vital Signs: Temp Pulse Resp BP Pulse Ox 97.7 F 90 16 136/68 H 95 12/05/17 08:03 12/05/17 08:03 12/05/17 08:03 12/05/17 08:03 12/05/17 08:03 Intake & Output 12/04/17 12/05/17 12/06/17 06:59 06:59 06:59 Intake Total 1445 2478 Output Total 300 102 Balance 1145 2376 Weight 40.3 kg 45.3 kg Physical Exam: General appearance: PRESENT: no acute distress, thin Head exam: PRESENT: atraumatic, normocephalic Eye exam: PRESENT: conjunctiva pink, EOMI, PERRLA. ABSENT: scleral icterus Mouth exam: PRESENT: moist Throat exam: ABSENT: post pharyngeal erythema Respiratory exam: PRESENT: crackles - scattered bilaterally, decreased breath sounds - at lung bases Cardiovascular exam: PRESENT: RRR. ABSENT: diastolic murmur, rubs, systolic murmur Vascular exam: PRESENT: normal capillary refill, pallor GI/Abdominal exam: PRESENT: normal bowel sounds, soft. ABSENT: distended, guarding, mass, organomegaly, rebound, tenderness Extremities exam: ABSENT: pedal edema Musculoskeletal exam: PRESENT: normal inspection Neurological exam: PRESENT: alert, awake, oriented to person, oriented to place , oriented to time, oriented to situation, CN II-XII grossly intact. ABSENT: motor sensory deficit Psychiatric exam: PRESENT: appropriate affect, normal mood. ABSENT: homicidal ideation, suicidal ideation Skin exam: PRESENT: dry, intact, warm. ABSENT: cyanosis, rash Results Laboratory Results: 12/04/17 10:40 12/04/17 10:40 Impressions: Chest X-Ray 12/03/17 00:00 IMPRESSION: Obstructive lung disease. Few [place] lines are present with trace right pleural fluid, question fluid overload versus congestive failure superimposed on obstructive lung disease. Assessment & Plan - Diagnosis (1) SIRS due to Gram-negative infection Is this a current diagnosis for this admission?: Yes Plan: Improved. See attending physician orders. (2) COPD exacerbation Is this a current diagnosis for this admission?: Yes Plan: Improving.See attending physician orders. (3) Myelodysplastic syndrome Is this a current diagnosis for this admission?: Yes Plan: See attending physician orders. (4) Symptomatic anemia Is this a current diagnosis for this admission?: Yes Plan: Post 2 PRBC transfusion. See attending physician orders. (5) Leukocytopenia, unspecified Qualifiers: Leukopenia type: unspecified Qualified Code(s): D72.819 - Decreased white blood cell count, unspecified Is this a current diagnosis for this admission?: Yes Plan: See attending physician orders. (6) Thrombocytopenia Is this a current diagnosis for this admission?: Yes Plan: Transfused 2 bags of pheresis platelets. See attending physician orders. (7) Diabetes mellitus type 2 in nonobese Is this a current diagnosis for this admission?: Yes Plan: See attending physician orders. (8) Essential (primary) hypertension Is this a current diagnosis for this admission?: Yes Plan: See attending physician orders. (9) HLD (hyperlipidemia) Qualifiers: Hyperlipidemia type: unspecified Qualified Code(s): E78.5 - Hyperlipidemia , unspecified Is this a current diagnosis for this admission?: Yes Plan: See attending physician orders. (10) Failure to thrive syndrome, adult Is this a current diagnosis for this admission?: Yes Plan: Encouraged oral food intake with use of supplements. See attending physician orders. (11) Senile osteoporosis Is this a current diagnosis for this admission?: Yes Plan: See attending physician orders. - Time Time Spent with patient: 25-34 minutes Medications reviewed and adjusted accordingly: Yes Anticipated discharge: Home with Homehealth Within: Other - Inpatient Certification Based on my medical assessment, after consideration of the patient's comorbidities, presenting symptoms, or acuity I expect that the services needed warrant INPATIENT care.: Yes I certify that my determination is in accordance with my understanding of Medicare's requirements for reasonable and necessary INPATIENT services [42 CFR 412.3e].: Yes Medical Necessity: Need Close Monitoring Due to Risk of Patient Decompensation, Need For IV Fluids, Need For Continuous Telemetry Monitoring, Need for Nebulizer Therapy and Monitoring of Response, Need for IV Antibiotics Post Hospital Care: 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
[2017-12-05] MEDS: CEFEPIME 1 GM/D5W RTU 1 GM/50 ML RTUPB IV SCH (16:42)
[2017-12-05] MEDS: MIRTAZAPINE 15 MG TABLET PO SCH (21:13)
[2017-12-06 05:39] LABS: HEMATOCRIT 26.9 % (36.0-47.0); HEMOGLOBIN 9.3 g/dL (12.0-15.5); MEAN CORPUSCULAR HEMOGLOBIN 30.6 pg (27.0-33.4); MEAN CORPUSCULAR HGB CONC 34.5 g/dL (32.0-36.0); MEAN CORPUSCULAR VOLUME 89 fl (80-97); RED BLOOD COUNT 3.03 10^6/uL (3.72-5.28); RED CELL DISTRIBUTION WIDTH 16.5 % (11.5-14.0)
[2017-12-06] MEDS: LANSOPRAZOLE 30 MG TAB.RAP.DR PO SCH (05:54)
[2017-12-06 05:58] LABS: ALANINE AMINOTRANSFERASE 22 U/L (9-52); ALBUMIN 2.4 g/dL (3.5-5.0); ALKALINE PHOSPHATASE 59 U/L (38-126); ANION GAP 10 (5-19); ASPARTATE AMINO TRANSFERASE 14 U/L (14-36); BILIRUBIN,DIRECT 0.6 mg/dL (0.0-0.4); BILIRUBIN,TOTAL 0.6 mg/dL (0.2-1.3); BLOOD UREA NITROGEN 33 mg/dL (7-20); CALCIUM 7.3 mg/dL (8.4-10.2); CARBON DIOXIDE 25 mmol/L (22-30); CHLORIDE 110 mmol/L (98-107); GLUCOSE 125 mg/dL (75-110); POTASSIUM 4.7 mmol/L (3.6-5.0); SODIUM 144.7 mmol/L (137-145); TOTAL PROTEIN 5.4 g/dL (6.3-8.2)
[2017-12-06 06:01] LABS: WHITE BLOOD COUNT 3.8 10^3/uL (4.0-10.5)
[2017-12-06 06:02] LABS: PLATELET COUNT 49 10^3/uL (150-450)
[2017-12-06 06:45] LABS: ABSOLUTE LYMPHOCYTES# (MANUAL) 1.1 10^3/uL (0.5-4.7); ABSOLUTE MONOCYTES # (MANUAL) 0.1 10^3/uL (0.1-1.4); ABSOLUTE NEUTROPHILS# (MANUAL) 2.6 10^3/uL (1.7-8.2); BAND NEUTROPHILS % (MANUAL) 2 % (3-5); BASOPHILS % (MANUAL) 0 % (0-2); EOSINOPHILS % (MANUAL) 2 % (0-6); LYMPHOCYTES % (MANUAL) 21 % (13-45); MONOCYTES % (MANUAL) 2 % (3-13); NUCLEATED RED BLOOD CELLS 2 /100 WBC (0); SEGMENTED NEUTROPHILS % (MAN) 66 % (42-78); TOTAL CELLS COUNTED 100
[2017-12-06 06:48] LABS: ANISOCYTOSIS 1+; HYPOCHROMASIA 1+; POIKILOCYTOSIS 1+; TOXIC GRANULATION 1+
[2017-12-06 06:49] LABS: PLATELET COMMENT DECREASED
[2017-12-06] MEDS: CALCIUM CARBONATE 500 MG TABLET PO SCH (10:56)
[2017-12-06] MEDS: METOPROLOL SUCCINATE 25 MG TAB.SR.24H PO SCH (10:56)
[2017-12-06] MEDS: ENALAPRIL MALEATE 10 MG TABLET PO SCH (10:57)
[2017-12-06] MEDS: MULTIVITAMIN TABLET PO SCH (10:57)
--- NOTE | 2017-12-06 14:19 | PDOC PROGRESS REPORT ---
Subjective Progress Note for:: 12/06/17 Subjective:: Patient was seen by the bedside, she was admitted for COPD exacerbation with hypoxemia Reason For Visit: SIRS WITH GRAM NEGATIVE ORGANISM;EXACERBATED COPD, Physical Exam Vital Signs: Temp Pulse Resp BP Pulse Ox 98.3 F 89 22 H 147/67 H 96 12/06/17 11:44 12/06/17 11:44 12/06/17 11:44 12/06/17 11:44 12/06/17 11:44 Intake & Output 12/05/17 12/06/17 12/07/17 06:59 06:59 06:59 Intake Total 2478 2246 Output Total 102 800 Balance 2376 1446 Weight 45.3 kg 48.6 kg General appearance: PRESENT: no acute distress Eye exam: PRESENT: PERRLA Respiratory exam: PRESENT: clear to auscultation laura Cardiovascular exam: PRESENT: +S1, +S2 GI/Abdominal exam: PRESENT: soft Neurological exam: PRESENT: alert Results Laboratory Results: 12/06/17 05:24 12/06/17 05:24 12/06/17 12/06/17 05:24 05:24 WBC 3.8 L D RBC 3.03 L Hgb 9.3 L Hct 26.9 L MCV 89 MCH 30.6 MCHC 34.5 RDW 16.5 H Plt Count 49 L Seg Neutrophils % Not Reportable Lymphocytes % Not Reportable Monocytes % Not Reportable Eosinophils % Not Reportable Basophils % Not Reportable Absolute Neutrophils Not Reportable Absolute Lymphocytes Not Reportable Absolute Monocytes Not Reportable Absolute Eosinophils Not Reportable Absolute Basophils Not Reportable Sodium 144.7 Potassium 4.7 Chloride 110 H Carbon Dioxide 25 Anion Gap 10 BUN 33 H Creatinine 1.15 Est GFR ( Amer) 54 L Est GFR (Non-Af Amer) 45 L Glucose 125 H Calcium 7.3 L Total Bilirubin 0.6 AST 14 ALT 22 Alkaline Phosphatase 59 Total Protein 5.4 L Albumin 2.4 L Impressions: Chest X-Ray 12/03/17 00:00 IMPRESSION: Obstructive lung disease. Few [place] lines are present with trace right pleural fluid, question fluid overload versus congestive failure superimposed on obstructive lung disease. Assessment & Plan - Diagnosis (1) COPD exacerbation Is this a current diagnosis for this admission?: Yes Plan: Continue treatment (2) Thrombocytopenia Is this a current diagnosis for this admission?: Yes
[2017-12-06] MEDS: CEFEPIME 1 GM/D5W RTU 1 GM/50 ML RTUPB IV SCH (15:50)
[2017-12-06] MEDS: MIRTAZAPINE 15 MG TABLET PO SCH (21:05)
[2017-12-07] MEDS ORDERED: FUROSEMIDE INJ/PF 40 MG/4 ML SDV ONE (01:00)
[2017-12-07 01:20] LABS: ARTERIAL BLOOD BASE EXCESS -6.4 mmol/L; ARTERIAL BLOOD H2CO3 2.63 mmol/L (1.05-1.35); ARTERIAL BLOOD HCO3 24.8 mmol/L (20-26); ARTERIAL BLOOD O2 SATURATION 97.7 % (94-98); ARTERIAL BLOOD PO2 145.7 mmHg (80-100); ARTERIAL BLOOD TOTAL CO2 27.5 mmol/L (21-25)
[2017-12-07 01:21] LABS: ARTERIAL BLOOD FIO2 100%
[2017-12-07 01:22] LABS: ARTERIAL BLOOD PCO2 87.3 mmHg (35-45); ARTERIAL BLOOD PH 7.07 (7.35-7.45)
[2017-12-07] MEDS ORDERED: FUROSEMIDE INJ/PF 40 MG/4 ML SDV IV ONE (01:30)
--- NOTE | 2017-12-07 01:53 | RADIOLOGY REPORT (SQ) ---
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 Upper sclerotic ossification aortic arch. Heart is not enlarged. Interval increase in bilateral airspace opacities as well as small bilateral pleural effusions. No pneumothorax. Leads overlie the chest. No acute osseous abnormalities. Upper abdominal soft tissues are unremarkable. IMPRESSION: 1. Interval development of bilateral airspace opacities and small bilateral pleural effusions. This may related to pneumonia or pulmonary edema.
[2017-12-07 03:02] LABS: ARTERIAL BLOOD BASE EXCESS -2.9 mmol/L; ARTERIAL BLOOD H2CO3 1.57 mmol/L (1.05-1.35); ARTERIAL BLOOD HCO3 24.1 mmol/L (20-26); ARTERIAL BLOOD O2 SATURATION 98.6 % (94-98); ARTERIAL BLOOD PCO2 52.3 mmHg (35-45); ARTERIAL BLOOD PH 7.28 (7.35-7.45); ARTERIAL BLOOD PO2 145.1 mmHg (80-100); ARTERIAL BLOOD TOTAL CO2 25.7 mmol/L (21-25)
[2017-12-07 03:16] LABS: ARTERIAL BLOOD FIO2 45%
[2017-12-07] MEDS: LANSOPRAZOLE 30 MG TAB.RAP.DR PO SCH (05:25)
[2017-12-07] MEDS: MULTIVITAMIN TABLET PO SCH (10:09)
[2017-12-07] MEDS: CALCIUM CARBONATE 500 MG TABLET PO SCH (10:09)
[2017-12-07] MEDS: ENALAPRIL MALEATE 10 MG TABLET PO SCH (10:09)
[2017-12-07] MEDS: METOPROLOL SUCCINATE 25 MG TAB.SR.24H PO SCH (10:10)
[2017-12-07] MEDS: LEVOFLOXACIN 250 MG/D5W RTU 250 MG/50 ML RTUPB IV SCH (10:10)
[2017-12-07] MEDS ORDERED: LIDOCAINE 1% INJ-PF (10 MG/ML) 30 ML SDV ONE (13:52)
--- NOTE | 2017-12-07 13:57 | PDOC PROGRESS REPORT ---
Subjective Progress Note for:: 12/07/17 Subjective:: Patient developed acute respiratory distress last night, she now requires noninvasive ventilation with BiPAP, chest x-ray showed diffuse infiltrate in both lung cobos which is new compared to previous chest x-ray, patient was made a DNR status last night, she has no IV access she would need a central line but she has severe thrombocytopenia, she has myelodysplastic syndrome. I spoke to the patient's daughter by the bedside prognosis is guarded to poor she is advanced age with severe pneumonia probably aspiration presently on Levaquin , she may need antibiotic to cover anaerobes and probably MRSA Reason For Visit: SIRS WITH GRAM NEGATIVE ORGANISM;EXACERBATED COPD, Physical Exam Vital Signs: Temp Pulse Resp BP Pulse Ox 97.8 F 103 H 32 H 150/72 H 91 L 12/07/17 03:43 12/07/17 07:00 12/07/17 12:00 12/07/17 03:43 12/07/17 12:00 Intake & Output 12/06/17 12/07/17 12/08/17 06:59 06:59 06:59 Intake Total 2246 2550 Output Total 800 450 Balance 1446 2100 Weight 48.6 kg 47.6 kg General appearance: PRESENT: severe distress Eye exam: PRESENT: PERRLA Respiratory exam: PRESENT: rales Cardiovascular exam: PRESENT: +S1, +S2 GI/Abdominal exam: PRESENT: soft Neurological exam: PRESENT: alert Results Laboratory Results: 12/06/17 05:24 12/06/17 05:24 12/07/17 12/07/17 01:05 01:35 Carbonic Acid 2.63 H 1.57 H HCO3/H2CO3 Ratio 9:1 15:1 ABG pH 7.07 L* 7.28 L ABG pCO2 87.3 H* 52.3 H ABG pO2 145.7 H 145.1 H ABG HCO3 24.8 24.1 ABG O2 Saturation 97.7 98.6 H ABG Base Excess -6.4 -2.9 FiO2 100% 45% Impressions: Chest X-Ray 12/07/17 00:00 IMPRESSION: 1. Interval development of bilateral airspace opacities and small bilateral pleural effusions. This may related to pneumonia or pulmonary edema. Assessment & Plan - Diagnosis (1) COPD exacerbation Is this a current diagnosis for this admission?: Yes (2) Thrombocytopenia Is this a current diagnosis for this admission?: Yes (3) Aspiration pneumonia Qualifiers: Aspiration pneumonia type: unspecified Laterality: bilateral Lung location: unspecified part of lung Qualified Code(s): J69.0 - Pneumonitis due to inhalation of food and vomit Is this a current diagnosis for this admission?: Yes Plan: Start ertapenem (4) Myelodysplasia (myelodysplastic syndrome) Is this a current diagnosis for this admission?: Yes (5) Acute respiratory failure Qualifiers: Respiratory failure complication: unspecified whether with hypoxia or hypercapnia Qualified Code(s): J96.00 - Acute respiratory failure, unspecified whether with hypoxia or hypercapnia Is this a current diagnosis for this admission?: Yes
[2017-12-07] MEDS ORDERED: LORAZEPAM 0.5 MG TABLET ONE (13:58)
[2017-12-07] MEDS ORDERED: LORAZEPAM 0.5 MG TABLET PO ONE (15:00)
[2017-12-07] MEDS: CEFEPIME 1 GM/D5W RTU 1 GM/50 ML RTUPB IV SCH (15:25)
--- NOTE | 2017-12-07 17:21 | OPERATIVE REPORT E ---
Operative Report NAME: VIJI VARGAS : 1935 AGE: 82Y DATE OF SURGERY: 12/07/2017 ROOM: 329 PREOPERATIVE DIAGNOSIS: POOR VEINS FOR IV ACCESS. POSTOPERATIVE DIAGNOSIS: POOR VEINS FOR IV ACCESS. OPERATION: Placement of central line. SURGEON: PINO BOO M.D. ANESTHESIA: Local. INDICATION: This is an 82-year-old female who needed IV access. Nurse was unable to get IV access in upper extremity veins. PROCEDURE: Patient was placed in slight reverse Trendelenburg position, and the right groin prepped and draped in the usual sterile fashion. With the use of the ultrasound, the right femoral vein was then identified. Local anesthesia infiltrated, and the femoral vein subsequently punctured and guidewire passed through the needle towards the area of the inferior vena cava. Needle was removed and the puncture site dilated. A triple-lumen catheter inserted through the guidewire towards the area of the inferior vena cava. About 18 cm of the catheter was introduced. The catheter was then anchored to the skin with 3-0 silk. A Biopatch was placed at the insertion site and a Transpire dressing placed over the Biopatch and catheter. Patient did have about 0.5 mg of p.o. Ativan just prior to procedure to keep her more relaxed and movable, especially with her platelet count low at around 48,000. Patient tolerated procedure well. All the 3 ports easily aspirated blood and instilled saline easily. Nurses can use the catheter right now. Patient tolerated procedure well. DICTATING PHYSICIAN: PINO BOO M.D. [id number] PHY#: [id number] ID: [id number] JOB#: [id number] ACCT: [id number] cc:PINO BOO M.D. >
[2017-12-07] MEDS ORDERED: ERTAPENEM SODIUM 1 GM in NORMAL SALINE 50 ML IV SCH (18:00)
[2017-12-07] MEDS: MIRTAZAPINE 15 MG TABLET PO SCH (21:32)
[2017-12-08] MEDS: LANSOPRAZOLE 30 MG TAB.RAP.DR PO SCH (05:38)
[2017-12-08] MEDS ORDERED: VANCOMYCIN HCL 0 MG in DEXTROSE 5%-WATER 250 ML IV NR (07:45)
--- NOTE | 2017-12-08 07:54 | PDOC PROGRESS REPORT ---
Subjective Progress Note for:: 12/08/17 Subjective:: Interval events noted. Patient remain on BiPAP support with need for high supplemental oxygen presently at 70%. She denied any chest pain. Remain NPO due to high risk of aspiration and desaturation off BiPAP support. No reported fever or chills. Reason For Visit: SIRS WITH GRAM NEGATIVE ORGANISM;EXACERBATED COPD, Physical Exam Vital Signs: Temp Pulse Resp BP Pulse Ox 98.1 F 113 H 22 H 129/63 H 94 12/08/17 03:19 12/08/17 03:19 12/08/17 03:19 12/08/17 03:19 12/08/17 03:19 Intake & Output 12/07/17 12/08/17 12/09/17 06:59 06:59 06:59 Intake Total 2550 330 Output Total 450 1600 Balance 2100 -1270 Weight 47.6 kg 48.8 kg General appearance: PRESENT: mild distress - on BiPAP support Head exam: PRESENT: atraumatic, normocephalic Eye exam: PRESENT: conjunctiva pink, EOMI, PERRLA. ABSENT: scleral icterus Mouth exam: PRESENT: moist Respiratory exam: PRESENT: crackles - minimal and scatered, decreased breath sounds - at lung bases Cardiovascular exam: PRESENT: RRR. ABSENT: diastolic murmur, rubs, systolic murmur Vascular exam: PRESENT: pallor GI/Abdominal exam: PRESENT: normal bowel sounds, soft. ABSENT: distended, guarding, mass, organolmegaly, rebound, tenderness Extremities exam: PRESENT: pedal edema Neurological exam: PRESENT: alert, awake, oriented to person, oriented to place , oriented to time, oriented to situation, CN II-XII grossly intact. ABSENT: motor sensory deficit Psychiatric exam: PRESENT: appropriate affect, normal mood. ABSENT: homicidal ideation, suicidal ideation Skin exam: PRESENT: dry, warm Results Laboratory Results: 12/06/17 05:24 12/06/17 05:24 Impressions: Chest X-Ray 12/07/17 00:00 IMPRESSION: 1. Interval development of bilateral airspace opacities and small bilateral pleural effusions. This may related to pneumonia or pulmonary edema. Assessment & Plan - Diagnosis (1) Acute respiratory failure Qualifiers: Respiratory failure complication: unspecified whether with hypoxia or hypercapnia Qualified Code(s): J96.00 - Acute respiratory failure, unspecified whether with hypoxia or hypercapnia Is this a current diagnosis for this admission?: Yes Plan: See attending physician orders. (2) Aspiration pneumonia Qualifiers: Aspiration pneumonia type: unspecified Laterality: bilateral Lung location: unspecified part of lung Qualified Code(s): J69.0 - Pneumonitis due to inhalation of food and vomit Is this a current diagnosis for this admission?: Yes Plan: See attending physician orders. (3) SIRS due to Gram-negative infection Is this a current diagnosis for this admission?: Yes (4) COPD exacerbation Is this a current diagnosis for this admission?: Yes (5) Myelodysplastic syndrome Is this a current diagnosis for this admission?: Yes (6) Symptomatic anemia Is this a current diagnosis for this admission?: Yes (7) Leukocytopenia, unspecified Qualifiers: Leukopenia type: unspecified Qualified Code(s): D72.819 - Decreased white blood cell count, unspecified Is this a current diagnosis for this admission?: Yes (8) Thrombocytopenia Is this a current diagnosis for this admission?: Yes (9) Diabetes mellitus type 2 in nonobese Is this a current diagnosis for this admission?: Yes (10) Essential (primary) hypertension Is this a current diagnosis for this admission?: Yes (11) HLD (hyperlipidemia) Qualifiers: Hyperlipidemia type: unspecified Qualified Code(s): E78.5 - Hyperlipidemia , unspecified Is this a current diagnosis for this admission?: Yes (12) Failure to thrive syndrome, adult Is this a current diagnosis for this admission?: Yes (13) Senile osteoporosis Is this a current diagnosis for this admission?: Yes - Time Time Spent with patient: 25-34 minutes Medications reviewed and adjusted accordingly: Yes Anticipated discharge: Other Within: Other - Inpatient Certification Based on my medical assessment, after consideration of the patient's comorbidities, presenting symptoms, or acuity I expect that the services needed warrant INPATIENT care.: Yes I certify that my determination is in accordance with my understanding of Medicare's requirements for reasonable and necessary INPATIENT services [42 CFR 412.3e].: Yes Medical Necessity: Need Close Monitoring Due to Risk of Patient Decompensation, Need For IV Fluids, Need For Continuous Telemetry Monitoring, Need for Nebulizer Therapy and Monitoring of Response, Need for IV Antibiotics, Risk of Complication if Not Cared For in Hospital Post Hospital Care: D/C Ice Cream Maker Documentation - Plan Summary Plan Summary: See attending physician orders. D/C Invanzn. Start on IV Vancomycin. Maintain on IV Levofloxacin and Cefepime coverage. Patient remain on DNR status. I had extensive discussion with family at bedside regarding her poor prognosis.
[2017-12-08] MEDS ORDERED: LORAZEPAM INJ 2 MG/1 ML VIAL ONE (09:02)
[2017-12-08] MEDS ORDERED: LORAZEPAM INJ 2 MG/1 ML VIAL IV PRN (09:24)
[2017-12-08] MEDS ORDERED: VANCOMYCIN HCL 750 MG in DEXTROSE 5%-WATER 250 ML IV ONE (10:00)
[2017-12-08] MEDS: CALCIUM CARBONATE 500 MG TABLET PO SCH (10:05)
[2017-12-08] MEDS: ENALAPRIL MALEATE 10 MG TABLET PO SCH (10:05)
[2017-12-08] MEDS: MULTIVITAMIN TABLET PO SCH (10:05)
[2017-12-08] MEDS: METOPROLOL SUCCINATE 25 MG TAB.SR.24H PO SCH (10:09)
[2017-12-08 13:53] VITALS: BP 101/86
[2017-12-08] MEDS: CEFEPIME 1 GM/D5W RTU 1 GM/50 ML RTUPB IV SCH (15:07)
--- NOTE | 2017-12-08 20:12 | Death Summary ---
Summary Date : 12/08/17 Time of :: 13:24 Autopsy: No Resuscitation Status: Do Not Resuscitate Primary Care Provider: Fantasma Pittman MD - Final Diagnosis (1) Acute respiratory failure Is this a current diagnosis for this admission?: Yes (2) Aspiration pneumonia Is this a current diagnosis for this admission?: Yes (3) SIRS due to Gram-negative infection Is this a current diagnosis for this admission?: Yes (4) COPD exacerbation Is this a current diagnosis for this admission?: Yes (5) Myelodysplastic syndrome Is this a current diagnosis for this admission?: Yes (6) Symptomatic anemia Is this a current diagnosis for this admission?: Yes (7) Leukocytopenia, unspecified Is this a current diagnosis for this admission?: Yes (8) Thrombocytopenia Is this a current diagnosis for this admission?: Yes (9) Diabetes mellitus type 2 in nonobese Is this a current diagnosis for this admission?: Yes (10) Essential (primary) hypertension Is this a current diagnosis for this admission?: Yes (11) HLD (hyperlipidemia) Is this a current diagnosis for this admission?: Yes (12) Failure to thrive syndrome, adult Is this a current diagnosis for this admission?: Yes (13) Senile osteoporosis Is this a current diagnosis for this admission?: Yes Hospital Course:: Patient was admitted for SIRS with gram negative organism and exacerbated COPD. Her condition did worsen with development of bilateral air space disease process with bilateral pleural effusion and consideration of aspiration pneumonia. She developed acute respiratory failure necessitating BiPAP support with required high percentage supplemental oxygen to attain satisfactory oxygenation level. There was adjustment to her antibiotic coverage. She was made DNR after extensive discussion with family due to her poor prognosis and morbidities. She eventually ceased breathing at 1324 HR when she was pronounced . Autopsy was declined as well as organ donation. Her body was released to home as per family instruction.
[2017-12-09] MEDS ORDERED: VANCOMYCIN HCL 500 MG in DEXTROSE 5%-WATER 100 ML IV SCH (08:00)
== END 2017-12-08 15:18 | disposition left against medical advice (07) | DRG 177 ==
LOC: OBSVTOIN 12:51 → 5 12:51 → 3S 21:33
PROVIDERS: ADMIT Internal Medicine Geriatric Medicine; ATTEND Internal Medicine Geriatric Medicine
PROC: 30233R1 Transfusion of Nonautologous Platelets into Peripheral Vein, Percutaneous Approach (ICD-10-PCS; principal; 2017-12-03)
PROC: 30233N1 Transfusion of Nonautologous Red Blood Cells into Peripheral Vein, Percutaneous Approach (ICD-10-PCS; 2017-12-03)
PROC: 06H033Z Insertion of Infusion Device into Inferior Vena Cava, Percutaneous Approach (ICD-10-PCS; 2017-12-07)
DX: J69.0 Pneumonitis due to inhalation of food and vomit (principal); J96.01 Acute respiratory failure with hypoxia; J44.1 Chronic obstructive pulmonary disease with (acute) exacerbation; Z68.1 Body mass index [BMI] 19.9 or less, adult; Z66 Do not resuscitate; D69.6 Thrombocytopenia, unspecified; D46.9 Myelodysplastic syndrome, unspecified; R00.0 Tachycardia, unspecified; I10 Essential (primary) hypertension; E11.9 Type 2 diabetes mellitus without complications; E78.00 Pure hypercholesterolemia, unspecified; R62.7 Adult failure to thrive; M81.0 Age-related osteoporosis without current pathological fracture
CPT/HCPCS: 36415; 36430; 71045; 71046; 80053; 81001; 82803; 82962; 85025; 86850; 86900; 86901; 86920; 87040; 94640; 94660; C1751; J0692; J1335; J1940; J1956; J2060; J3370; J3490; J7030; J7060; P9016; P9035; S0119